=== PATIENT | female | born 2000 | race Caucasian/White ===

== ENCOUNTER → 2023-08-30 12:00 | Outpatient (CLI) | payer BC, SELFPAY ==
[2023-08-30 18:29] LABS: Basophils # 0.1 K/mm3 (0-0.2); Basophils % 0.6 % (0.1-2.0); Eosinophils # 0.1 K/mm3 (0.0-0.4); Eosinophils % 0.6 % (0.1-12.0); Hematocrit 40.7 % (37.0-47.0); Lymphocytes # 3.4 K/mm3 (0.7-4.5); Lymphocytes % 32.5 % (10-50); Mean Corpuscular HGB Conc 34.4 g/dL (31.8-35.4); Mean Corpuscular Hemoglobin 30.3 pg (27.0-31.2); Mean Corpuscular Volume 88.2 fl (81-99); Monocytes # 0.4 K/mm3 (0.1-1.0); Monocytes % 3.8 % (1.7-9.3); Neutrophils # 6.5 K/mm3 (1.8-7.8); Neutrophils % 62.6 % (37.0-80.0); Platelet Count 230 K/mm3 (142-424); Red Blood Count 4.61 M/mm3 (4.20-5.40); Red Cell Distribution Width 15.2 % (11.5-17.5); White Blood Count 10.4 K/mm3 (4.8-10.8)
[2023-08-30 18:59] LABS: Alanine Aminotransferase 20 U/L (12-78); Albumin Level 4.1 g/dl (3.5-5.0); Albumin/Globulin Ratio 1.3 (1.1-1.8); Alkaline Phosphatase 75 U/L (38-126); Anion Gap 13.9 mEq/L (5-15); Aspartate Amino Transferase 27 U/L (14-36); Bilirubin,Total 0.2 mg/dl (0.2-1.3); Blood Urea Nitrogen 8 mg/dl (7-17); Calcium 8.9 mg/dl (8.4-10.2); Carbon Dioxide 23 mmol/L (22.0-30.0); Chloride 103 mmol/L (98-107); Chol/HDL Ratio 3.1 (1-3.5); Cholesterol 214 mg/dl (140-200); Estimated Glomerular Filt Rate 103 ml/min (>60); GFR (African American) 124 ML/MIN (>60); Globulin 3.1 g/dL (1.3-3.2); Glucose 108 mg/dl (74-100); HDL Cholesterol 69 mg/dl (40-60); Potassium 3.9 mmoL/L (3.5-5.1); Sodium 136 mmol/L (136-145); Total Protein,Serum 7.2 g/dl (6.3-8.2); Triglycerides 158 mg/dl (30-150); VLDL Cholesterol 32 mg/dL (0-40)
[2023-08-30 19:29] LABS: Thyroid Stimulating Hormone 1.62 uIU/mL (0.465-4.68)
[2023-08-30 20:19] LABS: Hemoglobin A1C 5.2 % (4.0-6.0)
== END ==
PROVIDERS: PCP Family Medicine; Visit Provider Family Medicine
DX: Z00.00 Encounter for general adult medical examination without abnormal findings (principal)
CPT/HCPCS: 80053; 80061; 83036; 84443; 85025

== ENCOUNTER 2024-07-14 09:01 | Outpatient (CLI) | payer BC, SELFPAY ==
[2024-07-14 19:27] LABS: Basophils # 0.1 K/mm3 (0-0.2); Basophils % 0.8 % (0.1-2.0); Eosinophils # 0.1 K/mm3 (0.0-0.4); Eosinophils % 0.7 % (0.1-12.0); Hematocrit 46.7 % (37.0-47.0); Hemoglobin 15.3 g/dL (12.2-16.2); Lymphocytes # 2.2 K/mm3 (0.7-4.5); Lymphocytes % 27.1 % (10-50); Mean Corpuscular HGB Conc 32.7 g/dL (31.8-35.4); Mean Corpuscular Hemoglobin 32.1 pg (27.0-31.2); Mean Corpuscular Volume 98.4 fl (81-99); Mean Platelet Volume 10.2 fl (7.4-10.4); Monocytes # 0.4 K/mm3 (0.1-1.0); Monocytes % 4.3 % (1.7-9.3); Neutrophils # 5.5 K/mm3 (1.8-7.8); Neutrophils % 67.1 % (37.0-80.0); Platelet Count 260 K/mm3 (142-424); Red Blood Count 4.75 M/mm3 (4.20-5.40); Red Cell Distribution Width 14.1 % (11.5-17.5); White Blood Count 8.1 K/mm3 (4.8-10.8)
[2024-07-14 19:40] LABS: Alanine Aminotransferase 25 U/L (12-78); Albumin Level 4.1 g/dl (3.5-5.0); Albumin/Globulin Ratio 1.5 (1.1-1.8); Alkaline Phosphatase 71 U/L (38-126); Anion Gap 11.9 mEq/L (5-15); Aspartate Amino Transferase 31 U/L (14-36); Bilirubin,Total 0.7 mg/dl (0.2-1.3); Blood Urea Nitrogen 6 mg/dl (7-17); Calcium 9.2 mg/dl (8.4-10.2); Carbon Dioxide 21 mmol/L (22.0-30.0); Chloride 106 mmol/L (98-107); Estimated Glomerular Filt Rate 122 ml/min (>60); GFR (African American) 147 ML/MIN (>60); Globulin 2.8 g/dL (1.3-3.2); Glucose 92 mg/dl (74-100); Potassium 3.9 mmoL/L (3.5-5.1); Sodium 135 mmol/L (136-145); Total Protein,Serum 6.9 g/dl (6.3-8.2)
[2024-07-14 19:56] LABS: HCG,Quantitative 789 mIU/ml (0-5.42)
[2024-07-14 20:07] LABS: Hemoglobin A1C 5.3 % (4.0-6.0)
[2024-07-14 20:11] LABS: Thyroid Stimulating Hormone 1.98 uIU/mL (0.465-4.68)
[2024-07-14 20:46] LABS: Vitamin B12 247 pg/mL (239-931)
== END 2024-07-14 23:59 | disposition home or self-care (01) ==
LOC: LAB.DROPOF 07-15 09:01
PROVIDERS: PCP Nurse Practitioner; Visit Provider Nurse Practitioner
DX: Z34.90 Encounter for supervision of normal pregnancy, unspecified, unspecified trimester (principal)
CPT/HCPCS: 80050; 80053; 82607; 82746; 83036; 84443; 84702; 85025

== ENCOUNTER 2024-07-20 08:44 | Outpatient (CLI) | payer BC, SELFPAY ==
[2024-07-21 08:40] LABS: Progesterone 6.8 ng/mL (.)
== END 2024-07-20 23:59 | disposition home or self-care (01) ==
LOC: LAB 08:45
PROVIDERS: PCP Family Medicine; Visit Provider Obstetrics & Gynecology
DX: Z34.81 Encounter for supervision of other normal pregnancy, first trimester (principal)
CPT/HCPCS: 36415; 84144

== ENCOUNTER 2024-08-04 11:37 | Outpatient (CLI) | payer BC, SELFPAY ==
[2024-08-04 12:16] LABS: Basophils # 0.1 K/mm3 (0-0.2); Basophils % 0.5 % (0.1-2.0); Eosinophils % 0.4 % (0.1-12.0); Hematocrit 41.9 % (37.0-47.0); Hemoglobin 14.9 g/dL (12.2-16.2); Lymphocytes # 2.9 K/mm3 (0.7-4.5); Lymphocytes % 25.2 % (10-50); Mean Corpuscular HGB Conc 35.7 g/dL (31.8-35.4); Mean Corpuscular Hemoglobin 31.9 pg (27.0-31.2); Mean Corpuscular Volume 89.3 fl (81-99); Monocytes # 0.5 K/mm3 (0.1-1.0); Monocytes % 3.9 % (1.7-9.3); Neutrophils # 8.1 K/mm3 (1.8-7.8); Neutrophils % 69.9 % (37.0-80.0); Platelet Count 238 K/mm3 (142-424); Red Blood Count 4.69 M/mm3 (4.20-5.40); Red Cell Distribution Width 13.7 % (11.5-17.5); White Blood Count 11.6 K/mm3 (4.8-10.8)
[2024-08-04 13:19] LABS: HIV (1&2) Antibody Rapid NONREACTIVE (NONREACTIVE)
[2024-08-05 09:20] LABS: HCV Ab Non Reactive (Non Reactive); Hepatitis B Surface Antigen Negative (Negative)
[2024-08-05 13:41] LABS: Rapid Plasma Reagin Ab Titer Non Reactive titer (NonRea<1:1)
[2024-08-06 12:47] LABS: Rubella Antibodies, IgG <0.90 index (Immune >0.99)
== END 2024-08-04 23:59 | disposition home or self-care (01) ==
LOC: LAB 11:38
PROVIDERS: PCP Family Medicine; Visit Provider Obstetrics & Gynecology
DX: Z34.81 Encounter for supervision of other normal pregnancy, first trimester (principal)
CPT/HCPCS: 36415; 85025; 86593; 86762; 86803; 86850; 87086; 87340; 87389

== ENCOUNTER 2024-10-23 12:45 | Outpatient (CLI) | payer BC, SELFPAY ==
--- NOTE | 2024-10-23 12:46 | US_ITS ---
PROCEDURE: US OB /MATERNAL DETAIL CLINICAL INDICATION: 20 week anatomy scan COMPARISON: No exams were available for comparison FINDINGS: Transabdominal sonographic images of the pelvis were obtained. From her established due date she is 20 weeks 2 days. Single viable intrauterine gestation. Cephalic position. Placenta: Anteriorplacenta grade 1. There is an average amount of fluid. The cervix appears satisfactory. Closed and measuring 2.96 cm in length. Complete survey performed and was unremarkable on the submitted images as in PACS. No discrete anomalies identified on survey imaging by technologist. Active fetus. Three-vessel cord with satisfactory umbilical cord insertion. 4- chamber heart noted. Situs, aortic arch, LVOT, RVOT, three-vessel view appear normal. Survey of brain & ventricles Unremarkable. Cerebellum, thalamus, choroid plexus, cisterna magna appear normal. Face and neck survey unremarkable. Profile, nasion, lips and nose appeared normal. Diaphragm and chest views unremarkable. Abdomen: Both kidneys noted and unremarkable. Stomach and bladder noted and satisfactory. Spine: Survey of the spine satisfactory with no anomalies identified nor imaged. Cervical, thoracic, lower spine appear normal. Both arms and legs noted. Amniotic Fluid: Adequate. MVP 4.78 cm. Measurements: Average ultrasound age 19weeks 5days. Estimated due date by ultrasound age 0603/14/2025. Estimated weight 322g BPD = 19weeks 2days HC = 19weeks 1day AC = 20weeks 1day FL = 20weeks 1day Growth Percentile= 27 Heart Rate = 150bpm Cerebellum = 19weeks 3days Humerus = 19weeks 6days HC/AC is 1.1 FL/BPD is 0.73 FL/AC is 0.22 IMPRESSION: 1. Viable fetus in the cephalic presentation with an anterior placenta grade 1. 2. The fluid is within normal limits with an MVP 4.78 cm. 3. Anatomical scan appears normal. 4. biometry is consistent with the dates. Dictated by: Anthony Rodriguez MD 10/23/2024 18:58 Anthony Rodriguez MD in [facility] 10/23/2024 18:58
== END 2024-10-23 23:59 | disposition home or self-care (01) ==
LOC: RAD 12:46
PROVIDERS: PCP Family Medicine; Visit Provider Obstetrics & Gynecology
DX: Z36.89 Encounter for other specified antenatal screening (principal); Z3A.20 20 weeks gestation of pregnancy
CPT/HCPCS: 76811

== ENCOUNTER 2024-12-18 10:47 | Outpatient (CLI) | payer BC, SELFPAY ==
[2024-12-18 12:05] LABS: Basophils % 0.3 % (0.1-2.0); Eosinophils # 0.1 K/mm3 (0.0-0.4); Eosinophils % 0.5 % (0.1-12.0); Hematocrit 35.2 % (37.0-47.0); Hemoglobin 12.3 g/dL (12.2-16.2); Lymphocytes # 2.3 K/mm3 (0.7-4.5); Lymphocytes % 20.9 % (10-50); Mean Corpuscular HGB Conc 34.9 g/dL (31.8-35.4); Mean Corpuscular Hemoglobin 31.5 pg (27.0-31.2); Mean Corpuscular Volume 90.3 fl (81-99); Mean Platelet Volume 11.3 fl (7.4-10.4); Monocytes # 0.5 K/mm3 (0.1-1.0); Monocytes % 4.8 % (1.7-9.3); Neutrophils # 7.9 K/mm3 (1.8-7.8); Neutrophils % 72.7 % (37.0-80.0); Platelet Count 164 K/mm3 (142-424); Red Cell Distribution Width 12.9 % (11.5-17.5); White Blood Count 10.8 K/mm3 (4.8-10.8)
[2024-12-18 12:25] LABS: Glucose 1 Hour 150 mg/dL (74-100)
[2024-12-19 10:38] LABS: RPR W/RFX Titers Nonreactive (Nonreactive)
== END 2024-12-18 23:59 | disposition home or self-care (01) ==
LOC: LAB 10:48
PROVIDERS: PCP Family Medicine; Visit Provider Obstetrics & Gynecology
DX: Z34.83 Encounter for supervision of other normal pregnancy, third trimester (principal)
CPT/HCPCS: 36415; 82947; 85025; 86592

== ENCOUNTER 2024-12-25 08:30 | Outpatient (CLI) | payer BC, SELFPAY | END 2024-12-25 23:59 | disposition home or self-care (01) | LOC: LAB 08:31 | PROVIDERS: PCP Family Medicine; Visit Provider Obstetrics & Gynecology | DX: R69 Illness, unspecified (principal) ==

== ENCOUNTER 2025-01-14 16:18 | Outpatient (CLI) | payer BC, SELFPAY ==
[2025-01-14 17:41] LABS: Basophils % 0.3 % (0.1-2.0); Eosinophils # 0.1 K/mm3 (0.0-0.4); Eosinophils % 0.6 % (0.1-12.0); Lymphocytes # 2.5 K/mm3 (0.7-4.5); Lymphocytes % 22.2 % (10-50); Mean Corpuscular HGB Conc 34.3 g/dL (31.8-35.4); Mean Corpuscular Hemoglobin 31.7 pg (27.0-31.2); Mean Corpuscular Volume 92.3 fl (81-99); Monocytes # 0.7 K/mm3 (0.1-1.0); Monocytes % 5.9 % (1.7-9.3); Neutrophils # 7.9 K/mm3 (1.8-7.8); Neutrophils % 69.9 % (37.0-80.0); Platelet Count 181 K/mm3 (142-424); Red Blood Count 3.79 M/mm3 (4.20-5.40); White Blood Count 11.4 K/mm3 (4.8-10.8)
[2025-01-14 18:01] LABS: Creatinine,Urine Random 93 mg/dL (Not Estab.)
[2025-01-14 18:07] LABS: Alanine Aminotransferase 12 U/L (12-78); Albumin Level 3.5 g/dl (3.5-5.0); Albumin/Globulin Ratio 1.3 (1.1-1.8); Alkaline Phosphatase 103 U/L (38-126); Anion Gap 13.5 mEq/L (5-15); Aspartate Amino Transferase 18 U/L (14-36); Bilirubin,Total 0.4 mg/dl (0.2-1.3); Blood Urea Nitrogen 6 mg/dl (7-17); Calcium 8.9 mg/dl (8.4-10.2); Carbon Dioxide 24 mmol/L (22.0-30.0); Chloride 102 mmol/L (98-107); Estimated Glomerular Filt Rate 121 ml/min (>60); GFR (African American) 146 ML/MIN (>60); Globulin 2.7 g/dL (1.3-3.2); Glucose 76 mg/dl (74-100); Potassium 3.5 mmoL/L (3.5-5.1); Sodium 136 mmol/L (136-145); Total Protein,Serum 6.2 g/dl (6.3-8.2); Uric Acid 4.4 mg/dl (2.5-6.2)
== END 2025-01-14 23:59 | disposition home or self-care (01) ==
LOC: LAB 16:19
PROVIDERS: PCP Family Medicine; Visit Provider Obstetrics & Gynecology
DX: O13.9 Gestational [pregnancy-induced] hypertension without significant proteinuria, unspecified trimester (principal)
CPT/HCPCS: 36415; 80053; 82570; 84156; 84550; 85025

== ENCOUNTER 2025-01-18 10:34 | Outpatient (CLI) | payer BC, SELFPAY ==
[2025-01-18 11:33] VITALS: BMI 42.5
[2025-01-18] MEDS: LACTATED RINGERS 1000ML 1,000 ML 999 ML IV (12:08)
[2025-01-18 12:13] LABS: Microscopic, Urine URINE MICROSCOPIC (MICROSCOPIC)
[2025-01-18 12:16] LABS: Basophils % 0.2 % (0.1-2.0); Eosinophils # 0.1 K/mm3 (0.0-0.4); Eosinophils % 0.5 % (0.1-12.0); Hematocrit 34.8 % (37.0-47.0); Hemoglobin 12.2 g/dL (12.2-16.2); Lymphocytes # 2.2 K/mm3 (0.7-4.5); Lymphocytes % 20.4 % (10-50); Mean Corpuscular HGB Conc 35.1 g/dL (31.8-35.4); Mean Corpuscular Hemoglobin 31.7 pg (27.0-31.2); Mean Corpuscular Volume 90.4 fl (81-99); Mean Platelet Volume 11.3 fl (7.4-10.4); Monocytes # 0.6 K/mm3 (0.1-1.0); Monocytes % 5.5 % (1.7-9.3); Neutrophils # 7.7 K/mm3 (1.8-7.8); Neutrophils % 72.5 % (37.0-80.0); Platelet Count 168 K/mm3 (142-424); Red Blood Count 3.85 M/mm3 (4.20-5.40); Red Cell Distribution Width 13.1 % (11.5-17.5); White Blood Count 10.6 K/mm3 (4.8-10.8)
[2025-01-18 12:19] LABS: Appearance,Urine CLEAR (Clear); Bilirubin,Urine Negative (Negative); Blood, Urine Negative (Negative); Color,Urine YELLOW (Yellow); Glucose,Urine (UA) Negative (Negative); Ketones,Urine Negative (Negative); Leukocyte Esterase,Urine TRACE (Negative); Nitrate,Urine Negative (Negative); Protein,Urine Negative (Negative); Urobilinogen,Urine 0.2 EU/dl (0.2)
[2025-01-18 12:27] VITALS: BP 149/93; PULSE 96; RESP 17; TEMP 37.3; O2SAT 98; BMI 42.5
[2025-01-18 12:27] LABS: Alanine Aminotransferase 14 U/L (12-78); Albumin Level 3.6 g/dl (3.5-5.0); Albumin/Globulin Ratio 1.1 (1.1-1.8); Alkaline Phosphatase 108 U/L (38-126); Anion Gap 11.5 mEq/L (5-15); Aspartate Amino Transferase 20 U/L (14-36); Bilirubin,Total 0.5 mg/dl (0.2-1.3); Blood Urea Nitrogen 6 mg/dl (7-17); Calcium 9.3 mg/dl (8.4-10.2); Carbon Dioxide 23 mmol/L (22.0-30.0); Chloride 106 mmol/L (98-107); Creatinine Clearance Estimated 128 mL/min (50-200); Estimated Glomerular Filt Rate 121 ml/min (>60); GFR (African American) 146 ML/MIN (>60); Globulin 3.4 g/dL (1.3-3.2); Glucose 76 mg/dl (74-100); Potassium 3.5 mmoL/L (3.5-5.1); Sodium 137 mmol/L (136-145); Uric Acid 5.1 mg/dl (2.5-6.2)
[2025-01-18 12:34] LABS: Bacteria,Urine 2+ /lpf; RBC,Urine Occasional #/hpf (0-3); WBC,Urine Occasional #/hpf (0-3)
[2025-01-18 12:50] LABS: Activated Partial Thrombo Time 25.7 seconds (22.8-30.6); Fibrinogen 458 mg/dL (229.9-363.5); Prothrombin Time 10.2 seconds (10.1-12.5)
[2025-01-18 13:03] LABS: Creatinine,Urine Random 155 mg/dL (Not Estab.)
[2025-01-18 14:29] LABS: Total Volume,Urine 2300 mL (600-1600)
[2025-01-18 16:09] LABS: Total Protein 24 Hour,Urine 345 mg/24 hr (40-90)
== END 2025-01-18 14:04 | disposition home or self-care (01) ==
LOC: LAB 10:35 → OBOUT 11:30 → OB 11:31
PROVIDERS: Nurse Practitioner Obstetrics & Gynecology; Obstetrics & Gynecology; PCP Family Medicine; Visit Provider Obstetrics & Gynecology
DX: O13.3 Gestational [pregnancy-induced] hypertension without significant proteinuria, third trimester (principal); Z3A.32 32 weeks gestation of pregnancy
CPT/HCPCS: 80053; 81001; 82570; 84155; 84156; 84550; 85025; 85384; 85610; 85730; 87086; G0463; J7120

== ENCOUNTER 2025-01-21 10:12 | Outpatient (CLI) | payer BC, SELFPAY ==
--- NOTE | 2025-01-21 10:45 | US_ITS ---
PROCEDURE: US OB BIOPHYSICAL PROFILE CLINICAL INDICATION: Needs 01/21/25 for Gestational hypertension COMPARISON: US US OB /MATERNAL DETAIL from 10/23/2024 FINDINGS: Transabdominal sonographic images of the uterus were obtained. From her established due date she is 33weeks 1day. The following parameters are obtained: Viable Fetus in the cephalic presentation with an anterior placenta grade 2. Average ultrasound age is 33weeks 6days Estimated weight 2,383g, 5 lb 4 oz The cervix measures 3.76 cm. Measurements: heart Rate = 147bpm BPD = 33weeks 1day, 44 percentile HC = 33weeks 0 days, 11 percentile AC = 35weeks 1day, 94 percentile FL = 33weeks 5days, 52 percentile HC/AC is 0.95 FL/BPD is 0.79 FL/AC is 0.21 75 percentile Amniotic fluid index: 12.1cm, MVP 4.63 cm Qualitative AFV:2 Breathing movements: 2 Gross Body Movements: 2 Tone: 2 Biophysical profile score: 8 No obvious anomalies evident.Kidneys, stomach, bladder, four-chamber heart, three-vessel cord appear normal. IMPRESSION: 1. Viable fetus in the cephalic presentation with an anterior placenta grade 2. 2. The fluid is within normal limits with an amniotic fluid index 12.1 cm, MVP 4.63 cm. 3. Biophysical profile is 8/8 with good breathing movement and movement seen. 4. There has been good interval growth with the fetus currently 75th percentile. The abdominal circumference is approximately 2 weeks ahead. 5. Limited anatomical scan appears normal. Dictated by: Anthony Rodriguez MD 01/21/2025 10:59 Antohny Rodriguez MD in [facility] 01/21/2025 10:59
== END 2025-01-21 23:59 | disposition home or self-care (01) ==
LOC: RAD 10:13
PROVIDERS: PCP Family Medicine; Visit Provider Obstetrics & Gynecology
DX: O13.3 Gestational [pregnancy-induced] hypertension without significant proteinuria, third trimester (principal); Z3A.33 33 weeks gestation of pregnancy
CPT/HCPCS: 76816; 76819

== ENCOUNTER 2025-01-21 14:33 | Outpatient (CLI) | payer BC, SELFPAY ==
[2025-01-21] VITALS (9 sets, daily range): BP systolic 122–145; BP diastolic 70–89; PULSE 103; RESP 18; TEMP 36.9; O2SAT 98; BMI 42.5
[2025-01-21 15:43] LABS: Microscopic, Urine URINE MICROSCOPIC (MICROSCOPIC)
[2025-01-21 15:46] LABS: Bilirubin,Urine Negative (Negative); Blood, Urine Negative (Negative); Glucose,Urine (UA) Negative (Negative); Ketones,Urine Negative (Negative); Leukocyte Esterase,Urine 1+ (Negative); Nitrate,Urine Negative (Negative); Protein,Urine Negative (Negative); Specific Gravity, Urine <= 1.005 (1.005-1.030); Urobilinogen,Urine 0.2 EU/dl (0.2)
[2025-01-21 15:47] LABS: Basophils % 0.4 % (0.1-2.0); Eosinophils # 0.1 K/mm3 (0.0-0.4); Eosinophils % 0.7 % (0.1-12.0); Hematocrit 33.2 % (37.0-47.0); Hemoglobin 11.9 g/dL (12.2-16.2); Lymphocytes # 2.4 K/mm3 (0.7-4.5); Lymphocytes % 23.5 % (10-50); Mean Corpuscular HGB Conc 35.8 g/dL (31.8-35.4); Mean Corpuscular Hemoglobin 32.4 pg (27.0-31.2); Mean Corpuscular Volume 90.5 fl (81-99); Mean Platelet Volume 11.8 fl (7.4-10.4); Monocytes # 0.6 K/mm3 (0.1-1.0); Monocytes % 5.6 % (1.7-9.3); Neutrophils # 7.1 K/mm3 (1.8-7.8); Neutrophils % 68.8 % (37.0-80.0); Nucleated Red Blood Cells # 0 10^3/uL; Nucleated Red Blood Cells % 0 %; Platelet Count 174 K/mm3 (142-424); Red Blood Count 3.67 M/mm3 (4.20-5.40); Red Cell Distribution Width 13.1 % (11.5-17.5); Red Cell Distribution Width-SD 42.6 fL; White Blood Count 10.3 K/mm3 (4.8-10.8)
[2025-01-21 15:50] LABS: Appearance,Urine Slightly Cloudy (Clear); Color,Urine Straw (Yellow)
[2025-01-21 16:02] LABS: Fibrinogen 458 mg/dL (229.9-363.5); INR 0.87 (0.9-1.1); Prothrombin Time 9.9 seconds (10.1-12.5)
[2025-01-21 16:03] LABS: Alanine Aminotransferase 15 U/L (12-78); Anion Gap 12.6 mEq/L (5-15); Aspartate Amino Transferase 23 U/L (14-36); Blood Urea Nitrogen 6 mg/dl (7-17); Calcium 8.6 mg/dl (8.4-10.2); Carbon Dioxide 21 mmol/L (22.0-30.0); Chloride 107 mmol/L (98-107); Creatinine Clearance Estimated 153 mL/min (50-200); Estimated Glomerular Filt Rate 149 ml/min (>60); GFR (African American) 180 ML/MIN (>60); Glucose 66 mg/dl (74-100); Potassium 3.6 mmoL/L (3.5-5.1); Sodium 137 mmol/L (136-145); Uric Acid 4.7 mg/dl (2.5-6.2)
[2025-01-21 16:08] LABS: Bacteria,Urine 4+ /lpf; Renal Epithelial Cells,Urine Occasional #/lpf (0)
[2025-01-21] MEDS: LABETALOL 100MG TABLET 200 MG PO (16:36)
[2025-01-21 16:37] LABS: Activated Partial Thrombo Time 26.1 seconds (22.8-30.6)
== END 2025-01-21 17:25 | disposition home or self-care (01) ==
LOC: OBOUT 14:34 → OB 14:35
PROVIDERS: PCP Family Medicine; Visit Provider Nurse Practitioner Obstetrics & Gynecology
DX: O13.3 Gestational [pregnancy-induced] hypertension without significant proteinuria, third trimester (principal); Z3A.33 33 weeks gestation of pregnancy
CPT/HCPCS: 80048; 81001; 84450; 84460; 84550; 85025; 85384; 85610; 85730; 87086; G0463

== ENCOUNTER 2025-01-25 15:41 | Outpatient (CLI) | payer BC, SELFPAY ==
[2025-01-25 15:52] VITALS: BMI 43.1
[2025-01-25 15:59] LABS: Microscopic, Urine URINE MICROSCOPIC (MICROSCOPIC)
[2025-01-25 16:09] LABS: Bilirubin,Urine Negative (Negative); Blood, Urine Negative (Negative); Color,Urine YELLOW (Yellow); Glucose,Urine (UA) Negative (Negative); Ketones,Urine Negative (Negative); Leukocyte Esterase,Urine 1+ (Negative); Nitrate,Urine Negative (Negative); Protein,Urine Negative (Negative); Specific Gravity, Urine <= 1.005 (1.005-1.030); Urobilinogen,Urine 0.2 EU/dl (0.2)
[2025-01-25 16:12] VITALS: BP 133/83; PULSE 97; RESP 18; TEMP 36.9; O2SAT 98; BMI 43.1
[2025-01-25 16:12] LABS: Appearance,Urine Cloudy (Clear)
[2025-01-25 16:36] LABS: Bacteria,Urine Trace /lpf; RBC,Urine Occasional #/hpf (0-3)
== END 2025-01-25 16:53 | disposition home or self-care (01) ==
LOC: OBOUT 15:44 → OB 15:51
PROVIDERS: PCP Family Medicine; Visit Provider Nurse Practitioner Obstetrics & Gynecology
DX: O13.3 Gestational [pregnancy-induced] hypertension without significant proteinuria, third trimester (principal); Z3A.33 33 weeks gestation of pregnancy
CPT/HCPCS: 59025; 81001; 87086

== ENCOUNTER 2025-01-26 12:33 | Outpatient (CLI) | payer BC, SELFPAY ==
--- NOTE | 2025-01-26 13:00 | US_ITS ---
PROCEDURE: US OB BIOPHYSICAL PROFILE CLINICAL INDICATION: Needs 01/26/25 for gestational hypertension COMPARISON: US US OB /MATERNAL DETAIL from 10/23/2024 US US OB BIOPHYSICAL PROFILE from 01/21/2025 FINDINGS: Transabdominal sonographic images of the uterus were obtained. From her established due date she is 33weeks 6days. The following parameters are obtained: Viable Fetus in the cephalic presentation with an anterior placenta grade 2. The cervix measures 3.38 cm. Measurements: heart Rate = 133bpm Amniotic fluid index: 8.2cm, MVP 3.10 cm. Qualitative AFV:2 Breathing movements: 2 Gross Body Movements: 2 Tone: 2 Biophysical profile score: 8 No obvious anomalies evident.Kidneys, bladder, stomach, four-chamber heart, three-vessel cord appear normal. IMPRESSION: 1. Viable fetus in the cephalic presentation with an anterior placenta grade 2. 2. The fluid is within normal limits with an amniotic fluid index 8.20 cm, MVP 3.10 cm. 3. Biophysical profile is 8/8 with good breathing movement and movement seen. 4. Limited anatomical scan appears normal. Dictated by: Anthony Rodriguez MD 01/26/2025 14:36 Anthony Rodriguez MD in [facility] 01/26/2025 14:36
== END 2025-01-26 23:59 | disposition home or self-care (01) ==
LOC: RAD 12:34
PROVIDERS: PCP Family Medicine; Visit Provider Obstetrics & Gynecology
DX: O13.3 Gestational [pregnancy-induced] hypertension without significant proteinuria, third trimester (principal)
CPT/HCPCS: 76819

== ENCOUNTER 2025-01-28 12:19 | Inpatient (IN) | payer BC, SELFPAY ==
[2025-01-28] VITALS (9 sets, daily range): BP systolic 121–149; BP diastolic 67–77; PULSE 88–104; RESP 16–18; TEMP 36.4–36.8; O2SAT 98–99; BMI 42.7
[2025-01-28] MEDS: CALCIUM CARBONATE 500MG CHEWTAB 500 MG PO (13:00)
--- NOTE | 2025-01-28 13:54 | P.CONPHA_ITS ---
Pharmacy Intervention Comments: MEDICATION RECONCILIATION COMPLETED ON PATIENT USING EXTERNAL FILL HISTORY FROM PHARMACY AND LIST FROM SCREENER OPERATOR OFFICE. -AMAN MARTÍNEZD
--- NOTE | 2025-01-28 13:54 | HMH.PHAINT1 ---
Pharmacy Intervention Comments: MEDICATION RECONCILIATION COMPLETED ON PATIENT USING EXTERNAL FILL HISTORY FROM PHARMACY AND LIST FROM SENIOR GAME DEVELOPER OFFICE. -AMAN MARTÍNEZD
[2025-01-28 14:18] LABS: Microscopic, Urine URINE MICROSCOPIC (MICROSCOPIC)
[2025-01-28 14:20] LABS: Basophils % 0.2 % (0.1-2.0); Eosinophils # 0.1 K/mm3 (0.0-0.4); Eosinophils % 1.1 % (0.1-12.0); Hemoglobin 11.7 g/dL (12.2-16.2); Lymphocytes # 2.4 K/mm3 (0.7-4.5); Lymphocytes % 22.4 % (10-50); Mean Corpuscular HGB Conc 34.4 g/dL (31.8-35.4); Mean Corpuscular Hemoglobin 31.5 pg (27.0-31.2); Mean Corpuscular Volume 91.4 fl (81-99); Mean Platelet Volume 11.3 fl (7.4-10.4); Monocytes # 0.6 K/mm3 (0.1-1.0); Monocytes % 5.2 % (1.7-9.3); Neutrophils # 7.4 K/mm3 (1.8-7.8); Neutrophils % 70.4 % (37.0-80.0); Nucleated Red Blood Cells # 0 10^3/uL; Nucleated Red Blood Cells % 0 %; Platelet Count 174 K/mm3 (142-424); Red Blood Count 3.72 M/mm3 (4.20-5.40); Red Cell Distribution Width 13.1 % (11.5-17.5); Red Cell Distribution Width-SD 43.6 fL; White Blood Count 10.5 K/mm3 (4.8-10.8)
[2025-01-28 14:22] LABS: Appearance,Urine CLEAR (Clear); Bilirubin,Urine Negative (Negative); Blood, Urine Negative (Negative); Color,Urine YELLOW (Yellow); Glucose,Urine (UA) Negative (Negative); Ketones,Urine Negative (Negative); Leukocyte Esterase,Urine Negative (Negative); Nitrate,Urine Negative (Negative); PH,Urine 6.5 (5.0-8.5); Protein,Urine Negative (Negative); Specific Gravity, Urine <= 1.005 (1.005-1.030); Urobilinogen,Urine 0.2 EU/dl (0.2)
[2025-01-28 14:26] LABS: Chloride 106 mmol/L (98-107)
[2025-01-28 14:27] LABS: Albumin Level 3.7 g/dl (3.5-5.0); Potassium 3.3 mmoL/L (3.5-5.1); Sodium 139 mmol/L (136-145)
[2025-01-28 14:29] LABS: Blood Urea Nitrogen 5 mg/dl (7-17); Creatinine Clearance Estimated 110 mL/min (50-200); Estimated Glomerular Filt Rate 101 ml/min (>60); GFR (African American) 122 ML/MIN (>60)
[2025-01-28 14:30] LABS: Alanine Aminotransferase 19 U/L (12-78); Albumin/Globulin Ratio 1.1 (1.1-1.8); Alkaline Phosphatase 113 U/L (38-126); Anion Gap 14.3 mEq/L (5-15); Aspartate Amino Transferase 25 U/L (14-36); Bilirubin,Total 0.4 mg/dl (0.2-1.3); Calcium 9.4 mg/dl (8.4-10.2); Carbon Dioxide 22 mmol/L (22.0-30.0); Globulin 3.4 g/dL (1.3-3.2); Glucose 103 mg/dl (74-100); Total Protein,Serum 7.1 g/dl (6.3-8.2)
[2025-01-28 14:40] LABS: Bacteria,Urine Trace /lpf; WBC,Urine Occasional #/hpf (0-3)
[2025-01-28 14:57] LABS: Creatinine,Urine Random 27 mg/dL (Not Estab.)
[2025-01-28 15:59] LABS: RPR W/RFX Titers Nonreactive (Nonreactive)
--- NOTE | 2025-01-28 16:47 | EXP.HP ---
History of Present Illness *Admission Date: 01/28/25 *Reason for visit:: Preeclampsia *History of present illness: Dahlia Salinas is a 24-year-old G1, P0 who presented to the office today with elevated blood pressures. At home her blood pressures have been within normal limits. She does have a diagnosis of preeclampsia. There is a complicated picture on if this is chronic hypertension with superimposed preeclampsia versus gestational hypertension which is turned into preeclampsia. She was sent over to labor and delivery for prolonged monitoring and possibly delivery if indicated. She was previously sent to labor and delivery on 01/18/2025 and received 2 doses of steroids during this time. She was started on labetalol 200 mg twice daily at this time as well. She denies any headaches, vision changes, or right upper quadrant pain today. Her 1 hour GTT was 150. She refused to do the 3-hour GTT and has been monitoring her blood glucose. They have been within normal limits. OB ultrasound reviewed - Most recent ultrasound on 01/26/2025: BPP 8/8. RADHA: 8.2. MVP: 3.1 cm. Anterior grade 2 placenta. Fetus was cephalic. - Ultrasound on 01/21/2025 at 33 weeks and 1 day gestation. EFW: 2383 g, 5 pounds 4 ounces. BPD: 44%, HC: 11%, AC: 94%, FL: 52%. 75th percentile overall. BPP: 8/8. MVP: 4.6 cm. Cervix was long thick and closed at 3.76 cm. [facility] Disclaimer: The information contained in this section may have been updated after the patient was seen, as this information can be updated by other users. 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 Anxiety Depression Surgical History Hx of anterior cruciate ligament surgery Social History Smoking Status: Never smoker alcohol intake: never current occupational status: employed Travel in the last 8 weeks: None Have you lived/traveled outside [place] in past 30 days?: No Contact w/someone who lives/traveled outside US past 30 days?: No Exposure to someone with infectious disease in past 14 days?: No Do you have a fever (greater than 100.4 F or 38 C)?: No Have you tested positive for COVID-19: No Exposed to someone with COVID-19 in past 14 days?: No Do you have a sore throat?: No Do you have a cough?: No Do you have any weakness?: No Do you have any diarrhea?: No Are you experiencing any unusual bleeding?: No Do you have any muscle aches/pain?: No Do you have any abdominal pain?: No Are you experiencing loss of taste or smell?: No Other Medical History Have you received the Flu Vaccine for this season: No Have you received the Pneumonia Vaccine: No Review of Systems Review of Systems Review of systems (narrative): Review of Systems Constitutional: Denies fever, chills, and sweats Eyes: Denies vision change/ pain Respiratory: Denies cough and shortness of breath Cardiovascular: Denies chest pain and lightheadedness Gastrointestinal: Denies abdominal pain. Denies nausea, vomiting. Genitourinary: Denies dysuria and incontinence Musculoskeletal: Denies shoulder pain and back pain Neurological: Denies change in speech or headaches Meds Home Medications and Allergies Home Medications ?Medication ?Instructions ?Recorded ?Confirmed ?Type vits no.130-ferrous fum 1 tab PO DAILY 08/04/24 01/28/25 History 27 mg iron-folic acid 800 mcg tablet ( Vitamin) hydroxyzine HCl 50 mg tablet 50 mg PO HS #30 tabs 11/18/24 01/28/25 Rx blood-glucose meter #1 ea 12/25/24 01/28/25 Rx labetalol 200 mg tablet 200 mg PO BID #60 tabs 01/21/25 01/28/25 Rx ondansetron HCl 4 mg tablet 4 mg PO Q8HP PRN nausea and 01/28/25 01/28/25 History vomiting New Prescriptions to Start Prescriptions: Allergies Allergy/AdvReac Type Severity Reaction Status Date / Time No Known Allergies Allergy Verified 01/28/25 10:59 Exam Data for Last 24 hours Vital signs and Labs for Last 24 Hours: Temp Pulse Resp BP Pulse Ox O2 Del Method 98.1 F 97 H 16 134/74 98 Room Air 01/28/25 16:03 01/28/25 16:03 01/28/25 16:03 01/28/25 16:03 01/28/25 16:03 01/28/25 16:03 Laboratory Results - last 24 hr 01/28/25 13:04: Urine Creatinine 27, Urine Total Protein 14.0 H 01/28/25 13:56: WBC 10.5, RBC 3.72 L, Hgb 11.7 L, Hct 34.0 L, MCV 91.4, MCH 31.5 H, MCHC 34.4, RDW 13.1, Plt Count 174, MPV 11.3 H, Neut % (Auto) 70.4, Lymph % (Auto) 22.4, [facility] % (Auto) 5.2, Eos % (Auto) 1.1, Baso % (Auto) 0.2, Neut # (Auto) 7.4, Lymph # (Auto) 2.4, [facility] # (Auto) 0.6, Eos # (Auto) 0.1, Baso # (Auto) 0.0, Sodium 139, Potassium 3.3 L, Chloride 106, Carbon Dioxide 22, Anion Gap 14.3, BUN 5 L, Creatinine 0.70, Estimated Creat Clear 110, Estimated GFR 101, Est GFR ( Amer) 122, Glucose 103 H, Uric Acid 6.0, Calcium 9.4, Total Bilirubin 0.4, AST 25, ALT 19, Alkaline Phosphatase 113, Total Protein 7.1, Albumin 3.7, Globulin 3.4 H, Albumin/Globulin Ratio 1.1, Urine Color Yellow, Urine Appearance Clear, Urine pH 6.5, Ur Specific [place] <= 1.005, Urine Protein Negative, Urine Glucose (UA) Negative, Urine Ketones Negative, Urine Blood Negative, Urine Nitrate Negative, Urine Bilirubin Negative, Urine Urobilinogen 0.2, Ur Leukocyte Esterase Negative, Urine RBC None, Urine WBC Occasional, Ur Squamous Epith Cells 5-10, Urine Bacteria Trace, RPR w/Rflx to Titer Nonreactive I & O for Last 24 hours: Intake & Output 01/25/25 01/26/25 01/27/25 01/28/25 23:59 23:59 23:59 23:59 Weight 257 lb Constitutional Constitutional: no acute distress *Routine HEENT Exam Head: Present normocephalic Eye: Present EOMI and PERRL ENT: Present mucous membranes moist *Routine Neck Exam Neck: Present supple; Absent lymphadenopathy *Routine Respiratory Exam Respiratory: Present CTA bilaterally *Routine Cardiovascular Exam Cardiovascular: Present RRR *Routine Abdominal Exam Abdominal: Present soft and normoactive bowel sounds; Absent tenderness *Routine Rectal Exam Rectal:: deferred *Routine Genitalia Exam Genitalia:: deferred *Routine Extremities Exam Extremities: Present edema; Absent cyanosis or clubbing *Routine Skin Exam Skin: Present warm; Absent rash *Routine Neurological Exam Neurological: Present alert and oriented X3 Assessment and Plan *Assessment and plan (1) Preeclampsia: Status: Acute Category: Medical Code(s): O14.90 - Unspecified pre-eclampsia, unspecified trimester (2) Depression: Status: Acute Category: Medical Code(s): F32.A - Depression, unspecified (3) Anxiety: Status: Acute Category: Medical Code(s): F41.9 - Anxiety disorder, unspecified (4) Obesity: Status: Acute Qualifiers: Obesity type: due to excess calories Obesity classification: adult class 3 (BMI >= 40) Serious obesity comorbidity presence: without serious comorbidity Body mass index: BMI 40.0-44.9 Qualified Code(s): E66.813 - Obesity, class 3; E66.01 - Morbid (severe) obesity due to excess calories; Z68.41 - Body mass index [BMI] 40.0-44.9, adult Category: Medical Code(s): E66.9 - Obesity, unspecified (5) Rubella non-immune status, antepartum: Status: Acute Category: Medical Code(s): O09.899 - Supervision of other high risk pregnancies, unspecified trimester; Z28.39 - Other underimmunization status Plan Admit to labor and delivery for prolonged monitoring and possible delivery secondary to a diagnosis of preeclampsia. This admission will be to rule out preeclampsia with severe features. Discussed the risk that if preeclampsia with severe features is diagnosed she will need to have magnesium and possibly be transferred to a higher level of care with an appropriate NICU secondary to delivery. We will complete PIH labs daily. Will continue to monitor her glucose. NSTs every 6 hours Frequent vital signs and assessment Repeat BPP on Saturday
[2025-01-28] MEDS: hydrOXYzine pamoate 25MG CAPSULE 50 MG PO (20:49)
[2025-01-28] MEDS: LABETALOL 100MG TABLET 200 MG PO (20:49)
[2025-01-29 04:00] VITALS: BP 126/72; PULSE 85; RESP 18; TEMP 36.8; O2SAT 98
[2025-01-29 06:24] LABS: Albumin Level 3.3 g/dl (3.5-5.0); Chloride 108 mmol/L (98-107); Potassium 3.5 mmoL/L (3.5-5.1); Sodium 138 mmol/L (136-145)
[2025-01-29 06:27] LABS: Alanine Aminotransferase 20 U/L (12-78); Albumin/Globulin Ratio 1.1 (1.1-1.8); Alkaline Phosphatase 135 U/L (38-126); Anion Gap 11.5 mEq/L (5-15); Aspartate Amino Transferase 30 U/L (14-36); Bilirubin,Total 0.4 mg/dl (0.2-1.3); Blood Urea Nitrogen 5 mg/dl (7-17); Calcium 8.6 mg/dl (8.4-10.2); Carbon Dioxide 22 mmol/L (22.0-30.0); Creatinine Clearance Estimated 192 mL/min (50-200); Estimated Glomerular Filt Rate 193 ml/min (>60); GFR (African American) 233 ML/MIN (>60); Globulin 3.1 g/dL (1.3-3.2); Glucose 78 mg/dl (74-100); Total Protein,Serum 6.4 g/dl (6.3-8.2)
[2025-01-29 06:31] LABS: Basophils # 0.1 K/mm3 (0-0.2); Basophils % 0.4 % (0.1-2.0); Eosinophils # 0.2 K/mm3 (0.0-0.4); Eosinophils % 1.4 % (0.1-12.0); Hematocrit 27.7 % (37.0-47.0); Lymphocytes # 2.4 K/mm3 (0.7-4.5); Lymphocytes % 16.9 % (10-50); Mean Corpuscular HGB Conc 30.3 g/dL (31.8-35.4); Mean Corpuscular Hemoglobin 24.6 pg (27.0-31.2); Mean Platelet Volume 9.7 fl (7.4-10.4); Monocytes # 1.2 K/mm3 (0.1-1.0); Monocytes % 8.4 % (1.7-9.3); Neutrophils # 9.5 K/mm3 (1.8-7.8); Neutrophils % 68.5 % (37.0-80.0); Nucleated Red Blood Cells # 0 10^3/uL; Nucleated Red Blood Cells % 0 %; Platelet Count 290 K/mm3 (142-424); Red Blood Count 3.42 M/mm3 (4.20-5.40); Red Cell Distribution Width 15.1 % (11.5-17.5); Red Cell Distribution Width-SD 44.7 fL; White Blood Count 13.9 K/mm3 (4.8-10.8)
[2025-01-29 07:08] LABS: Hemoglobin 8.5 g/dL (12.2-16.2)
[2025-01-29 07:25] LABS: Uric Acid 2.4 mg/dl (2.5-6.2)
[2025-01-29 08:00] VITALS: BP 127/66; PULSE 97; RESP 18; TEMP 36.7; O2SAT 97
[2025-01-29] MEDS: PRENATAL MULTIVITAMIN W/IRON 1 EACH PO (08:17)
[2025-01-29] MEDS: LABETALOL 100MG TABLET 200 MG PO ×2 (08:17→20:38)
[2025-01-29 12:00] VITALS: BP 131/62; PULSE 96; RESP 18; TEMP 36.8; O2SAT 99
--- NOTE | 2025-01-29 15:19 | EXP.PN ---
Subjective *Date: 01/29/25 *Time: 15:19 Interval history: Patient is doing well this morning. Denies any headaches, vision changes, right upper quadrant pain. Endorses very good movement. Her blood pressures have been well-controlled overnight. She states that she is occasionally able to tell when her blood pressure is elevated and she has not had any feelings of blood pressure elevations. Exam Data for Last 24 hours Vital signs and Labs for Last 24 Hours: Temp Pulse Resp BP Pulse Ox O2 Del Method 98.2 F 96 H 18 131/62 99 Room Air 01/29/25 12:00 01/29/25 12:00 01/29/25 12:00 01/29/25 12:00 01/29/25 12:00 01/29/25 12:00 Laboratory Results - last 24 hr 01/28/25 13:56: Uric Acid 6.0, RPR w/Rflx to Titer Nonreactive 01/29/25 05:09: WBC 13.9 H D, RBC 3.42 L, Hgb 8.5 L D, Hct 27.7 L, MCV 81.0, MCH 24.6 L, MCHC 30.3 L, RDW 15.1, Plt Count 290 D, MPV 9.7, Neut % (Auto) 68.5, Lymph % (Auto) 16.9, [place] % (Auto) 8.4, Eos % (Auto) 1.4, Baso % (Auto) 0.4, Neut # (Auto) 9.5 H, Lymph # (Auto) 2.4, [place] # (Auto) 1.2 H, Eos # (Auto) 0.2, Baso # (Auto) 0.1, Sodium 138, Potassium 3.5, Chloride 108 H, Carbon Dioxide 22, Anion Gap 11.5, BUN 5 L, Creatinine 0.40 L D, Estimated Creat Clear 192, Estimated GFR 193, Est GFR ( Amer) 233 D, Glucose 78 D, Uric Acid 2.4 L, Calcium 8.6, Total Bilirubin 0.4, AST 30, ALT 20, Alkaline Phosphatase 135 H, Total Protein 6.4, Albumin 3.3 L D, Globulin 3.1, Albumin/Globulin Ratio 1.1 I & O for Last 24 hours: Intake & Output 01/26/25 01/27/25 01/28/25 01/29/25 23:59 23:59 23:59 23:59 Output Total 1400 / 1400 700 / 700 Balance -1400 / -1400 -700 / -700 Weight 257 lb Constitutional Constitutional: no acute distress *Routine HEENT Exam Head: Present normocephalic Eye: Present EOMI and PERRL ENT: Present mucous membranes moist *Routine Neck Exam Neck: Present supple; Absent lymphadenopathy *Routine Respiratory Exam Respiratory: Present CTA bilaterally *Routine Cardiovascular Exam Cardiovascular: Present RRR *Routine Abdominal Exam Abdominal: Present soft and normoactive bowel sounds; Absent tenderness *Routine Extremities Exam Extremities: Absent cyanosis, clubbing or edema Comments: Plus 2 out of 4 bilateral lower extremity reflexes *Routine Skin Exam Skin: Present warm; Absent rash *Routine Neurological Exam Neurological: Present alert and oriented X3 Assessment and Plan *Assessment and plan (1) Preeclampsia: Status: Acute Category: Medical Code(s): O14.90 - Unspecified pre-eclampsia, unspecified trimester (2) Depression: Status: Acute Category: Medical Code(s): F32.A - Depression, unspecified (3) Anxiety: Status: Acute Category: Medical Code(s): F41.9 - Anxiety disorder, unspecified (4) Obesity: Status: Acute Qualifiers: Obesity type: due to excess calories Obesity classification: adult class 3 (BMI >= 40) Serious obesity comorbidity presence: without serious comorbidity Body mass index: BMI 40.0-44.9 Qualified Code(s): E66.813 - Obesity, class 3; E66.01 - Morbid (severe) obesity due to excess calories; Z68.41 - Body mass index [BMI] 40.0-44.9, adult Category: Medical Code(s): E66.9 - Obesity, unspecified (5) Rubella non-immune status, antepartum: Status: Acute Category: Medical Code(s): O09.899 - Supervision of other high risk pregnancies, unspecified trimester; Z28.39 - Other underimmunization status Plan Continue frequent vital signs Continue PIH labs daily Discussed discontinuation of labetalol versus continuation of labetalol 200 twice daily. The patient elects to proceed with continuing this medication. Discussed the risk of missing preeclampsia. At this time if her blood pressure remains stable and her diagnosis is strictly preeclampsia or chronic hypertension with superimposed preeclampsia we will plan for delivery at 37 weeks. Continue to monitor this patient very carefully. She has no blood pressure elevations I will plan to discharge on Saturday or Saturday with twice-weekly outpatient follow-up and weekly labs as well as frequent ultrasound/Prospan/BPP's. Will plan for delivery at 37 weeks if no severe features present
[2025-01-29] MEDS: ACETAMINOPHEN 500MG TAB 1000 MG PO (16:03)
--- NOTE | 2025-01-29 16:30 | US_ITS ---
PROCEDURE INFORMATION: Exam: US Biophysical Profile Without Non-Stress Test Exam date and time: 01/29/2025 1:15 PM Age: 24 years old Clinical indication: Condition or disease; Other: Preeclampsia; ; Additional info: Pre-eclampsia TECHNIQUE: Imaging protocol: US biophysical profile without non-stress testing. COMPARISON: US OB BIOPHYSICAL PROFILE 01/26/2025 12:53 PM FINDINGS: heart rate: 140 bpm Placenta: Placenta is anterior. Amniotic fluid (Qualitative): 2 Amniotic fluid index: RADHA is 10.64 cm. The amniotic fluid index is 10.64 cm. Presentation is cephalic. Heart rate is 140 bpm. BIOPHYSICAL PROFILE: breathing (BPP): 2 /2 gross body movement (BPP): 2 /2 tone (BPP): 2 /2 Amniotic fluid (BPP): 2 /2 Biophysical profile score (BPP): 8 /8 MATERNAL ANATOMY: Cervix: Cervical length measures 4.39 cm. Other findings: Breathin; Movement: 2; Tone: 2 IMPRESSION: Biophysical profile score of 8.
--- NOTE | 2025-01-29 17:14 | EXP.PN ---
Subjective *Date: 01/29/25 *Time: 17:14 Interval history: Checked in on the patient this afternoon. Her blood pressures have been appropriate. She denies any vision changes but does endorse a low-grade headache. She has had Tylenol and caffeine. Reports that it was persistent and rates it a 3 out of 10. Denies any vision changes Exam Data for Last 24 hours Vital signs and Labs for Last 24 Hours: Temp Pulse Resp BP Pulse Ox O2 Del Method 98.2 F 96 H 18 131/62 99 Room Air 01/29/25 12:00 01/29/25 12:00 01/29/25 12:00 01/29/25 12:00 01/29/25 12:00 01/29/25 12:00 Laboratory Results - last 24 hr 01/29/25 05:09: WBC 13.9 H D, RBC 3.42 L, Hgb 8.5 L D, Hct 27.7 L, MCV 81.0, MCH 24.6 L, MCHC 30.3 L, RDW 15.1, Plt Count 290 D, MPV 9.7, Neut % (Auto) 68.5, Lymph % (Auto) 16.9, [place] % (Auto) 8.4, Eos % (Auto) 1.4, Baso % (Auto) 0.4, Neut # (Auto) 9.5 H, Lymph # (Auto) 2.4, [place] # (Auto) 1.2 H, Eos # (Auto) 0.2, Baso # (Auto) 0.1, Sodium 138, Potassium 3.5, Chloride 108 H, Carbon Dioxide 22, Anion Gap 11.5, BUN 5 L, Creatinine 0.40 L D, Estimated Creat Clear 192, Estimated GFR 193, Est GFR ( Amer) 233 D, Glucose 78 D, Uric Acid 2.4 L, Calcium 8.6, Total Bilirubin 0.4, AST 30, ALT 20, Alkaline Phosphatase 135 H, Total Protein 6.4, Albumin 3.3 L D, Globulin 3.1, Albumin/Globulin Ratio 1.1 I & O for Last 24 hours: Intake & Output 01/26/25 01/27/25 01/28/25 01/29/25 23:59 23:59 23:59 23:59 Output Total 1400 / 1400 700 / 700 Balance -1400 / -1400 -700 / -700 Weight 257 lb Assessment and Plan *Assessment and plan (1) Preeclampsia: Status: Acute Category: Medical Code(s): O14.90 - Unspecified pre-eclampsia, unspecified trimester (2) Depression: Status: Acute Category: Medical Code(s): F32.A - Depression, unspecified (3) Anxiety: Status: Acute Category: Medical Code(s): F41.9 - Anxiety disorder, unspecified (4) Obesity: Status: Acute Qualifiers: Obesity type: due to excess calories Obesity classification: adult class 3 (BMI >= 40) Serious obesity comorbidity presence: without serious comorbidity Body mass index: BMI 40.0-44.9 Qualified Code(s): E66.813 - Obesity, class 3; E66.01 - Morbid (severe) obesity due to excess calories; Z68.41 - Body mass index [BMI] 40.0-44.9, adult Category: Medical Code(s): E66.9 - Obesity, unspecified (5) Rubella non-immune status, antepartum: Status: Acute Category: Medical Code(s): O09.899 - Supervision of other high risk pregnancies, unspecified trimester; Z28.39 - Other underimmunization status Plan Continue frequent vital signs Continue PIH labs daily Discussed discontinuation of labetalol versus continuation of labetalol 200 twice daily. The patient elects to proceed with continuing this medication. Discussed the risk of missing preeclampsia. At this time if her blood pressure remains stable and her diagnosis is strictly preeclampsia or chronic hypertension with superimposed preeclampsia we will plan for delivery at 37 weeks. Continue to monitor this patient very carefully. She has no blood pressure elevations I will plan to discharge on Saturday or Saturday with twice-weekly outpatient follow-up and weekly labs as well as frequent ultrasound/Prospan/BPP's. Will plan for delivery at 37 weeks if no severe features present There are several variables from her labs today that are much different than her labs yesterday to include her uric acid changing from 6-2.4. Her white blood cell count went from 10 to almost 14. Her hemoglobin went from a stable 11.7-8.5. Her platelets went from a stable repetitive at 174-290. Of note her urine protein to creatinine ratio was 0.5. Previously her urine protein to creatinine ratio was 0.18 on 01/14/2025. She had a 24-hour urine completed 01/16/2025 which showed proteinuria at 345.
[2025-01-29 20:34] VITALS: BP 130/73; PULSE 97; RESP 17; TEMP 36.6; O2SAT 98
[2025-01-29] MEDS: hydrOXYzine pamoate 25MG CAPSULE 50 MG PO (20:38)
[2025-01-30 04:00] VITALS: BP 128/58; PULSE 95; RESP 16; TEMP 36.7; O2SAT 98
[2025-01-30 08:39] LABS: Basophils % 0.2 % (0.1-2.0); Eosinophils # 0.1 Kmm3 (0.0-0.4); Eosinophils % 0.9 % (0.1-12.0); Hematocrit 32.4 % (37.0-47.0); Hemoglobin 11.1 g/dL (12.2-16.2); Lymphocytes # 1.4 K/mm3 (0.7-4.5); Lymphocytes % 13.2 % (10-50); Mean Corpuscular HGB Conc 34.3 g/dL (31.8-35.4); Mean Corpuscular Hemoglobin 31.7 pg (27.0-31.2); Mean Corpuscular Volume 92.6 fl (81-99); Mean Platelet Volume 11.5 fl (7.4-10.4); Monocytes # 0.4 K/mm3 (0.1-1.0); Monocytes % 4.2 % (1.7-9.3); Neutrophils # 8.5 K/mm3 (1.8-7.8); Neutrophils % 80.7 % (37.0-80.0); Nucleated Red Blood Cells # 0 10^3/uL; Nucleated Red Blood Cells % 0 %; Platelet Count 136 K/mm3 (142-424); Red Cell Distribution Width 13.3 % (11.5-17.5); Red Cell Distribution Width-SD 44.4 fL; White Blood Count 10.5 K/mm3 (4.8-10.8)
[2025-01-30 08:50] VITALS: BP 138/74; PULSE 103; RESP 18; TEMP 36.8; O2SAT 99
[2025-01-30] MEDS: LABETALOL 100MG TABLET 200 MG PO ×2 (08:53→21:06)
[2025-01-30 08:54] LABS: Albumin Level 3.3 g/dl (3.5-5.0); Chloride 108 mmol/L (98-107); Potassium 3.3 mmoL/L (3.5-5.1); Sodium 137 mmol/L (136-145)
[2025-01-30 08:57] LABS: Alanine Aminotransferase 22 U/L (12-78); Albumin/Globulin Ratio 1.1 (1.1-1.8); Alkaline Phosphatase 101 U/L (38-126); Anion Gap 14.3 mEq/L (5-15); Aspartate Amino Transferase 25 U/L (14-36); Bilirubin,Total 0.4 mg/dl (0.2-1.3); Blood Urea Nitrogen 5 mg/dl (7-17); Calcium 8.3 mg/dl (8.4-10.2); Carbon Dioxide 18 mmol/L (22.0-30.0); Creatinine Clearance Estimated 128 mL/min (50-200); Estimated Glomerular Filt Rate 121 ml/min (>60); GFR (African American) 146 ML/MIN (>60); Glucose 138 mg/dl (74-100); Total Protein,Serum 6.3 g/dl (6.3-8.2)
[2025-01-30 09:15] LABS: Uric Acid 5.2 mg/dl (2.5-6.2)
[2025-01-30 12:37] VITALS: BP 143/75; PULSE 102; RESP 18; O2SAT 99
[2025-01-30 15:45] VITALS: BP 134/64; PULSE 112; RESP 19; TEMP 36.9; O2SAT 98
[2025-01-30] MEDS: ACETAMINOPHEN 500MG TAB 1000 MG PO (15:55)
[2025-01-30] MEDS: ONDANSETRON 4MG/2ML VIAL 4 MG IV (17:01)
[2025-01-30 20:20] VITALS: BP 141/82; PULSE 110; RESP 17; TEMP 36.7; O2SAT 98
--- NOTE | 2025-01-30 20:31 | EXP.PN ---
Subjective *Date: 01/30/25 *Time: 20:31 Interval history: Dahlia is doing well, although stir crazy she is dying to go outside and not be stuck in her room. She states her headache improved yesterday and was gone for most of the day but recently returned. Rates it a 3/10. Parag vision changes or RUQ pain. Endorses very good movement. Her blood pressures have been well-controlled overnight. She and her partner desire steroids for FLM. Exam Data for Last 24 hours Vital signs and Labs for Last 24 Hours: Temp Pulse Resp BP Pulse Ox O2 Del Method 98.4 F 112 H 19 134/64 98 Room Air 01/30/25 15:45 01/30/25 15:45 01/30/25 15:45 01/30/25 15:45 01/30/25 15:45 01/30/25 15:45 Laboratory Results - last 24 hr 01/30/25 08:15: WBC 10.5, RBC 3.50 L, Hgb 11.1 L, Hct 32.4 L, MCV 92.6, MCH 31.7 H D, MCHC 34.3, RDW 13.3, Plt Count 136 L, MPV 11.5 H, Neut % (Auto) 80.7 H, Lymph % (Auto) 13.2, [place] % (Auto) 4.2, Eos % (Auto) 0.9, Baso % (Auto) 0.2, Neut # (Auto) 8.5 H, Lymph # (Auto) 1.4, [place] # (Auto) 0.4, Eos # (Auto) 0.1, Baso # (Auto) 0.0, Sodium 137, Potassium 3.3 L, Chloride 108 H, Carbon Dioxide 18 L, Anion Gap 14.3, BUN 5 L, Creatinine 0.60 D, Estimated Creat Clear 128, Estimated GFR 121, Est GFR ( Amer) 146 D, Glucose 138 H, Uric Acid 5.2, Calcium 8.3 L, Total Bilirubin 0.4, AST 25, ALT 22, Alkaline Phosphatase 101, Total Protein 6.3, Albumin 3.3 L, Globulin 3.0, Albumin/Globulin Ratio 1.1 I & O for Last 24 hours: Intake & Output 01/27/25 01/28/25 01/29/25 01/30/25 23:59 23:59 23:59 23:59 Intake Total 250 / 250 Output Total 1400 / 1400 950 / 950 3000 / 3000 Balance -1400 / -1400 -950 / -950 -2750 / -2750 Weight 257 lb Constitutional Constitutional: no acute distress *Routine HEENT Exam Head: Present normocephalic Eye: Present EOMI and PERRL ENT: Present mucous membranes moist *Routine Neck Exam Neck: Present supple; Absent lymphadenopathy *Routine Respiratory Exam Respiratory: Present CTA bilaterally *Routine Cardiovascular Exam Cardiovascular: Present RRR *Routine Abdominal Exam Abdominal: Present soft and normoactive bowel sounds; Absent tenderness *Routine Extremities Exam Extremities: Absent cyanosis, clubbing or edema Comments: Plus 2 out of 4 bilateral lower extremity reflexes *Routine Skin Exam Skin: Present warm; Absent rash *Routine Neurological Exam Neurological: Present alert and oriented X3 Assessment and Plan *Assessment and plan (1) Preeclampsia: Status: Acute Category: Medical Code(s): O14.90 - Unspecified pre-eclampsia, unspecified trimester (2) Depression: Status: Acute Category: Medical Code(s): F32.A - Depression, unspecified (3) Anxiety: Status: Acute Category: Medical Code(s): F41.9 - Anxiety disorder, unspecified (4) Obesity: Status: Acute Qualifiers: Obesity type: due to excess calories Obesity classification: adult class 3 (BMI >= 40) Serious obesity comorbidity presence: without serious comorbidity Body mass index: BMI 40.0-44.9 Qualified Code(s): E66.813 - Obesity, class 3; E66.01 - Morbid (severe) obesity due to excess calories; Z68.41 - Body mass index [BMI] 40.0-44.9, adult Category: Medical Code(s): E66.9 - Obesity, unspecified (5) Rubella non-immune status, antepartum: Status: Acute Category: Medical Code(s): O09.899 - Supervision of other high risk pregnancies, unspecified trimester; Z28.39 - Other underimmunization status Plan Continue frequent vital signs Continue PIH labs daily (add magnesium) Replacement electrolyte protocol ordered and potassium replaced today Continue labetalol 200 twice daily. The patient elects to proceed with continuing this medication. Discussed the risk of missing preeclampsia. At this time if her blood pressure remains stable and her diagnosis is strictly preeclampsia or chronic hypertension with superimposed preeclampsia we will plan for delivery at 37 weeks. Continue to monitor this patient very carefully. PIH labs: -Uric acid: 6 > 2.4 > 5.2. -Hgb: 11.7 > 8.5 > 11.1 -PLTs: 174 > 290 > 136 -Cr: 0.7 > 0.4 > 0.6 -AST/ALT: 25/19 > 30/20 > 25/22 Of note her urine protein to creatinine ratio was 0.5. Previously her urine protein to creatinine ratio was 0.18 on 01/14/2025. She had a 24-hour urine completed 01/16/2025 which showed proteinuria at 345.
[2025-01-30] MEDS: hydrOXYzine pamoate 25MG CAPSULE 50 MG PO (21:05)
[2025-01-30] MEDS: POTASSIUM CHLORIDE 20MEQ TAB 40 MEQ PO (21:05)
[2025-01-30] MEDS: BETAMETHASONE ACET/PHOS 6MG/ML 5ML MDV 12 MG IM (21:06)
[2025-01-31] MEDS: POTASSIUM CHLORIDE 20MEQ TAB 40 MEQ PO (00:33)
[2025-01-31 04:56] VITALS: BP 118/66; PULSE 109; RESP 20; TEMP 36.7; O2SAT 97
[2025-01-31 08:07] LABS: Basophils % 0.2 % (0.1-2.0); Eosinophils % 0.4 % (0.1-12.0); Hematocrit 33.6 % (37.0-47.0); Hemoglobin 11.5 g/dL (12.2-16.2); Lymphocytes % 9.5 % (10-50); Mean Corpuscular HGB Conc 34.2 g/dL (31.8-35.4); Mean Corpuscular Hemoglobin 31.7 pg (27.0-31.2); Mean Corpuscular Volume 92.6 fl (81-99); Mean Platelet Volume 11.7 fl (7.4-10.4); Monocytes # 0.3 K/mm3 (0.1-1.0); Monocytes % 2.6 % (1.7-9.3); Neutrophils # 9.1 K/mm3 (1.8-7.8); Neutrophils % 86.2 % (37.0-80.0); Nucleated Red Blood Cells # 0 10^3/uL; Nucleated Red Blood Cells % 0 %; Platelet Count 150 K/mm3 (142-424); Red Blood Count 3.63 M/mm3 (4.20-5.40); Red Cell Distribution Width 13.2 % (11.5-17.5); Red Cell Distribution Width-SD 44.3 fL; White Blood Count 10.6 K/mm3 (4.8-10.8)
[2025-01-31 08:17] LABS: Albumin Level 3.5 g/dl (3.5-5.0); Chloride 109 mmol/L (98-107); Potassium 4.3 mmoL/L (3.5-5.1); Sodium 136 mmol/L (136-145)
[2025-01-31 08:19] VITALS: BP 119/67; PULSE 108; RESP 18; TEMP 36.7; O2SAT 98
[2025-01-31 08:19] LABS: Blood Urea Nitrogen 5 mg/dl (7-17); Creatinine Clearance Estimated 153 mL/min (50-200); Estimated Glomerular Filt Rate 149 ml/min (>60); GFR (African American) 180 ML/MIN (>60)
[2025-01-31] MEDS: LABETALOL 100MG TABLET 200 MG PO ×2 (08:19→20:23)
[2025-01-31] MEDS: PRENATAL MULTIVITAMIN W/IRON 1 EACH PO (08:19)
[2025-01-31 08:20] LABS: Alanine Aminotransferase 15 U/L (12-78); Albumin/Globulin Ratio 1.1 (1.1-1.8); Alkaline Phosphatase 104 U/L (38-126); Anion Gap 13.3 mEq/L (5-15); Aspartate Amino Transferase 21 U/L (14-36); Bilirubin,Total 0.4 mg/dl (0.2-1.3); Calcium 9.2 mg/dl (8.4-10.2); Carbon Dioxide 18 mmol/L (22.0-30.0); Globulin 3.2 g/dL (1.3-3.2); Glucose 118 mg/dl (74-100); Total Protein,Serum 6.7 g/dl (6.3-8.2)
[2025-01-31 08:42] LABS: Uric Acid 4.9 mg/dl (2.5-6.2)
[2025-01-31 12:00] VITALS: BP 113/62; PULSE 102; RESP 17; TEMP 36.5; O2SAT 98
[2025-01-31 17:18] VITALS: BP 133/65; PULSE 102; RESP 18; TEMP 36.4; O2SAT 98
--- NOTE | 2025-01-31 19:30 | P.DS_ITS ---
General Admission date:: 01/28/25 Discharge date: 01/31/25 HPI HPI HPI: Dahlia Salinas is a 24-year-old G1, P0 who presented to the office today with elevated blood pressures. At home her blood pressures have been within normal limits. She does have a diagnosis of preeclampsia. There is a complicated picture on if this is chronic hypertension with superimposed preeclampsia versus gestational hypertension which is turned into preeclampsia. She was sent over to labor and delivery for prolonged monitoring and possibly delivery if indicated. She was previously sent to labor and delivery on 01/18/2025 and rec eived 2 doses of steroids during this time. She was started on labetalol 200 mg twice daily at this time as well. She denies any headaches, vision changes, or right upper quadrant pain today. Her 1 hour GTT was 150. She refused to do the 3-hour GTT and has been monitoring her blood glucose. They have been within normal limits. OB ultrasound reviewed - Most recent ultrasound on 01/26/2025: BPP 8/8. RADHA: 8.2. MVP: 3.1 cm. Anterior grade 2 placenta. Fetus was cephalic. - Ultrasound on 01/21/2025 at 33 weeks and 1 day gestation. EFW: 2383 g, 5 pounds 4 ounces. BPD: 44%, HC: 11%, AC: 94%, FL: 52%. 75th percentile overall. BPP: 8/8. MVP: 4.6 cm. Cervix was long thick and closed at 3.76 cm. Hospital Course Hospital Course Hospital Course: Dahlia Salinas is a 24-year-old G1, P0 who was admitted for delivery for close monitoring. She has a diagnosis of preeclampsia. She was being evaluated for discrimination between gestational hypertension which had progressed to preeclampsia versus chronic hypertension with superimposed preeclampsia. We were also monitoring her closely for severe features. Today when reviewing signs and symptoms with the patient she reports that since she was a teenager for probably the last 5 to 10 years she has been told that she has elevated blood pressure at most of her doctors visits. While she has remained inpatient she has had all very normal blood pressures 1 this morning was so low that it almost required holding her labetalol. She has had 2 very mild headaches which resolved easily. At this time she denies any headaches, vision changes, right upper quadrant pain. Strict return precautions were reviewed with her. Strict preeclampsia/eclampsia signs and symptoms were discussed with her. She was discharged home and her follow-up was reviewed multiple times with her. On discharge her [facility] labs were very appropriate. Yesterday a very extensive long greater than 45-minute risk and benefit discussion on late steroids was completed. We discussed neurodevelopmental disorders, autism, ADHD, lung maturity, respiratory distress syndrome, transient tachypnea of the . The patient elected to proceed with late term betamethasone. She will receive her second dose tonight prior to discharge Exam Data for Last 24 hours Vital signs and Labs for Last 24 Hours: Temp Pulse Resp BP Pulse Ox O2 Del Method 97.6 F 102 H 18 133/65 98 Room Air 01/31/25 17:18 01/31/25 17:18 01/31/25 17:18 01/31/25 17:18 01/31/25 17:18 01/31/25 17:18 Laboratory Results - last 24 hr 01/31/25 07:50: WBC 10.6, RBC 3.63 L, Hgb 11.5 L, Hct 33.6 L, MCV 92.6, MCH 31.7 H, MCHC 34.2, RDW 13.2, Plt Count 150, MPV 11.7 H, Neut % (Auto) 86.2 H, Lymph % (Auto) 9.5 L, [place] % (Auto) 2.6, Eos % (Auto) 0.4, Baso % (Auto) 0.2, Neut # (Auto) 9.1 H, Lymph # (Auto) 1.0, [place] # (Auto) 0.3, Eos # (Auto) 0.0, Baso # (Auto) 0.0, Sodium 136, Potassium 4.3 D, Chloride 109 H, Carbon Dioxide 18 L, Anion Gap 13.3, BUN 5 L, Creatinine 0.50 L, Estimated Creat Clear 153, Estimated GFR 149, Est GFR ( Amer) 180 D, Glucose 118 H, Uric Acid 4.9, Calcium 9.2, Total Bilirubin 0.4, AST 21, ALT 15 D, Alkaline Phosphatase 104, Total Protein 6.7, Albumin 3.5, Globulin 3.2, Albumin/Globulin Ratio 1.1 I & O for Last 24 hours: Intake & Output 01/28/25 01/29/25 01/30/25 01/31/25 23:59 23:59 23:59 23:59 Intake Total 250 / 250 Output Total 1400 / 1400 950 / 950 3750 / 3750 1550 / 1550 Balance -1400 / -1400 -950 / -950 -3500 / -3500 -1550 / -1550 Weight 257 lb Constitutional Constitutional: no acute distress *Routine HEENT Exam Head: Present normocephalic Eye: Present EOMI and PERRL ENT: Present mucous membranes moist *Routine Neck Exam Neck: Present supple; Absent lymphadenopathy *Routine Respiratory Exam Respiratory: Present CTA bilaterally *Routine Cardiovascular Exam Cardiovascular: Present RRR *Routine Abdominal Exam Abdominal: Present soft and normoactive bowel sounds; Absent tenderness *Routine Extremities Exam Extremities: Absent cyanosis, clubbing or edema Comments: Plus 2 out of 4 bilateral lower extremity reflexes *Routine Skin Exam Skin: Present warm; Absent rash *Routine Neurological Exam Neurological: Present alert and oriented X3 Results Data Completed and Pending Labs on day of discharge: Labs from last 24 hours 01/31/25 07:50 WBC 10.6 RBC 3.63 L Hgb 11.5 L Hct 33.6 L MCV 92.6 MCH 31.7 H MCHC 34.2 RDW 13.2 Plt Count 150 MPV 11.7 H Neut % (Auto) 86.2 H Lymph % (Auto) 9.5 L [place] % (Auto) 2.6 Eos % (Auto) 0.4 Baso % (Auto) 0.2 Neut # (Auto) 9.1 H Lymph # (Auto) 1.0 [place] # (Auto) 0.3 Eos # (Auto) 0.0 Baso # (Auto) 0.0 Sodium 136 Potassium 4.3 D Chloride 109 H Carbon Dioxide 18 L Anion Gap 13.3 BUN 5 L Creatinine 0.50 L Estimated Creat Clear 153 Estimated GFR 149 Est GFR ( Amer) 180 D Glucose 118 H Uric Acid 4.9 Calcium 9.2 Total Bilirubin 0.4 AST 21 ALT 15 D Alkaline Phosphatase 104 Total Protein 6.7 Albumin 3.5 Globulin 3.2 Albumin/Globulin Ratio 1.1 DS: Diagnosis Discharge Diagnosis (1) Preeclampsia: Status: Acute Code(s): O14.90 - Unspecified pre-eclampsia, unspecified trimester (2) Depression: Status: Acute Code(s): F32.A - Depression, unspecified (3) Anxiety: Status: Acute Code(s): F41.9 - Anxiety disorder, unspecified (4) Obesity: Status: Acute Code(s): E66.9 - Obesity, unspecified Qualifiers: Obesity type: due to excess calories Obesity classification: adult class 3 (BMI >= 40) Serious obesity comorbidity presence: without serious comorbidity Body mass index: BMI 40.0-44.9 Qualified Code(s): E66.813 - Obesity, class 3; E66.01 - Morbid (severe) obesity due to excess calories; Z68.41 - Body mass index [BMI] 40.0-44.9, adult (5) Rubella non-immune status, antepartum: Status: Acute Code(s): O09.899 - Supervision of other high risk pregnancies, unspecified trimester; Z28.39 - Other underimmunization status (6) Chronic hypertension: Status: Acute Code(s): I10 - Essential (primary) hypertension Meds Home Medications and Allergies Home Medications ?Medication ?Instructions ?Recorded ?Confirmed ?Type vits no.130-ferrous fum 1 tab PO DAILY 08/04/24 01/28/25 History 27 mg iron-folic acid 800 mcg tablet ( Vitamin) hydroxyzine HCl 50 mg tablet 50 mg PO HS #30 tabs 11/18/24 01/28/25 Rx blood-glucose meter #1 ea 12/25/24 01/28/25 Rx labetalol 200 mg tablet 200 mg PO BID #60 tabs 01/21/25 01/28/25 Rx ondansetron HCl 4 mg tablet 4 mg PO Q8HP PRN nausea and 01/28/25 01/28/25 H istory vomiting New Prescriptions to Start Prescriptions: Allergies Allergy/AdvReac Type Severity Reaction Status Date / Time No Known Allergies Allergy Verified 01/28/25 10:59 Discharge Plan Disposition Patient Disposition: Home, Self-Care Discharge Order Discharge Orders: Discharge Order (Routine); Ordered 01/31/25 Ordered By: Celeste Carreon Follow up Plan Follow up with: Celeste Carreon DO [Staff Physician] - Enter time for follow up Prescriptions/Medication Reconciliation: Continued Vitamin 27 mg iron- 800 mcg tablet 1 tab PO DAILY Patient Comments: TAKE 1 TABLET BY MOUTH ONCE DAILY. hydroxyzine HCl 50 mg tablet 50 mg PO HS Qty: 30 3RF (DME) blood-glucose meter Kit See Rx Instructions .Route Qty: 1 0RF Rx Instructions: Test Blood sugar QID, Fasting and 2 hours after each meal. labetalol 200 mg Tablet 200 mg PO BID Qty: 60 0RF ondansetron HCl 4 mg tablet 4 mg PO Q8HP PRN (Reason: nausea and vomiting) Problem Reconciliation Problems Reviewed?: Yes Patient Discharge Instructions ACTIVITY: Continue current activity DIET: regular diet Print Language: Yakut Providers Primary Care Provider: Deandre Dimas Admit Provider: Celeste Carreon Attending Provider: Celeste Carreon
[2025-01-31 20:10] VITALS: BP 135/79; PULSE 104; RESP 17; TEMP 36.8; O2SAT 99
[2025-01-31] MEDS: BETAMETHASONE ACET/PHOS 6MG/ML 5ML MDV 12 MG IM (20:24)
== END 2025-01-31 20:48 | disposition home or self-care (01) | DRG 833 ==
PROVIDERS: Admitting Provider Obstetrics & Gynecology; PCP Family Medicine; Visit Provider Obstetrics & Gynecology
DX: O11.3 Pre-existing hypertension with pre-eclampsia, third trimester (principal); O10.913 Unspecified pre-existing hypertension complicating pregnancy, third trimester; Z3A.34 34 weeks gestation of pregnancy; E66.813 Obesity, class 3; O99.343 Other mental disorders complicating pregnancy, third trimester; F41.8 Other specified anxiety disorders; O99.213 Obesity complicating pregnancy, third trimester
CPT/HCPCS: 36415; 59025; 76819; 80053; 81001; 82570; 84156; 84550; 85025; 86403; 86592; J0702; J2405

== ENCOUNTER 2025-02-02 12:35 | Outpatient (CLI) | payer BC, SELFPAY ==
--- NOTE | 2025-02-02 13:00 | US_ITS ---
PROCEDURE: US OB BIOPHYSICAL PROFILE CLINICAL INDICATION: Needs 02/02/25 for gestationhypertension COMPARISON: US US OB /MATERNAL DETAIL from 10/23/2024 US US OB BIOPHYSICAL PROFILE from 01/21/2025 US OB BIOPHYSICAL PROFILE from 01/26/2025 US OB BIOPHYSICAL PROFILE from 01/29/2025 FINDINGS: Transabdominal sonographic images of the uterus were obtained. From her established due date she is 34weeks 6days. The following parameters are obtained: Viable Fetus in the cephalic presentation with an anterior placenta grade 2-3. The cervix measures 3.61 cm Measurements: heart Rate = 152bpm Amniotic fluid index: 9.17cm, MVP 3.15 cm Qualitative AFV:2 Breathing movements: 2 Gross Body Movements: 2 Tone: 2 Biophysical profile score: 8 No obvious anomalies evident.Kidneys, profile, stomach, bladder, four-chamber heart, three-vessel cord appear normal. IMPRESSION: 1. Viable fetus in the cephalic presentation with an anterior placenta grade 2-3. 2. The fluid is within normal limits with an amniotic fluid index 9.17 cm, MVP 3.15 cm. 3. Biophysical profile is 8/8 with good breathing movement and movement seen. 4. Limited anatomical scan appears normal. Dictated by: Anthony Rodriguez MD 02/02/2025 19:46 Anthony Rodriguez MD in [place] 02/02/2025 19:46
== END 2025-02-02 23:59 | disposition home or self-care (01) ==
LOC: RAD 12:35
PROVIDERS: PCP Family Medicine; Visit Provider Obstetrics & Gynecology
DX: O13.3 Gestational [pregnancy-induced] hypertension without significant proteinuria, third trimester (principal)
CPT/HCPCS: 76819

== ENCOUNTER 2025-02-05 11:19 | Outpatient (CLI) | payer BC, SELFPAY ==
[2025-02-05 11:34] VITALS: BMI 42.0
[2025-02-05 11:48] LABS: Microscopic, Urine URINE MICROSCOPIC (MICROSCOPIC)
[2025-02-05 11:50] LABS: Appearance,Urine CLEAR (Clear); Bilirubin,Urine Negative (Negative); Blood, Urine Negative (Negative); Color,Urine YELLOW (Yellow); Glucose,Urine (UA) Negative (Negative); Ketones,Urine Negative (Negative); Leukocyte Esterase,Urine TRACE (Negative); Nitrate,Urine Negative (Negative); PH,Urine 6.5 (5.0-8.5); Protein,Urine Negative (Negative); Specific Gravity, Urine <= 1.005 (1.005-1.030); Urobilinogen,Urine 0.2 EU/dl (0.2)
[2025-02-05 12:10] LABS: Creatinine,Urine Random 39 mg/dL (Not Estab.); WBC,Urine Occasional #/hpf (0-3)
[2025-02-05 12:11] LABS: Bacteria,Urine Trace /lpf
--- NOTE | 2025-02-05 12:20 | US_ITS ---
PROCEDURE INFORMATION: Exam: US Biophysical Profile Without Non-Stress Test Exam date and time: 02/05/2025 12:28 PM Age: 24 years old Clinical indication: Other: Non reactive nst; ; Additional info: Non-reactive strip in office TECHNIQUE: Imaging protocol: US biophysical profile without non-stress testing. COMPARISON: US OB BIOPHYSICAL PROFILE 02/02/2025 12:52 PM FINDINGS: Gestation: Single intrauterine containing a fetus heart rate: 150 bpm Placenta: Placenta is anterior, grade 2-3 Amniotic fluid index: RADHA is 11.39 cm. BIOPHYSICAL PROFILE: breathing (BPP): 2 /2 gross body movement (BPP): 2 /2 tone (BPP): 2 /2 Amniotic fluid (BPP): 2 /2 Biophysical profile score (BPP): 8 /8 MATERNAL ANATOMY: Cervix: Cervical length measures 3.17 cm. IMPRESSION: Biophysical profile 05/21
[2025-02-05 12:27] LABS: Basophils % 0.2 % (0.1-2.0); Eosinophils # 0.1 Kmm3 (0.0-0.4); Eosinophils % 0.9 % (0.1-12.0); Hematocrit 34.1 % (37.0-47.0); Hemoglobin 11.7 g/dL (12.2-16.2); Lymphocytes % 18.2 % (10-50); Mean Corpuscular HGB Conc 34.3 g/dL (31.8-35.4); Mean Corpuscular Hemoglobin 31.8 pg (27.0-31.2); Mean Corpuscular Volume 92.7 fl (81-99); Mean Platelet Volume 11.1 fl (7.4-10.4); Monocytes # 0.6 K/mm3 (0.1-1.0); Monocytes % 5.7 % (1.7-9.3); Neutrophils # 8.3 K/mm3 (1.8-7.8); Neutrophils % 73.8 % (37.0-80.0); Nucleated Red Blood Cells # 0 10^3/uL; Nucleated Red Blood Cells % 0 %; Platelet Count 178 K/mm3 (142-424); Red Blood Count 3.68 M/mm3 (4.20-5.40); Red Cell Distribution Width 13.2 % (11.5-17.5); Red Cell Distribution Width-SD 44.4 fL; White Blood Count 11.2 K/mm3 (4.8-10.8)
[2025-02-05 12:34] VITALS: BP 149/87; PULSE 94; RESP 18; TEMP 36.7; O2SAT 96; BMI 42.0
[2025-02-05 12:37] LABS: Alanine Aminotransferase 15 U/L (12-78); Albumin Level 3.7 g/dl (3.5-5.0); Albumin/Globulin Ratio 1.2 (1.1-1.8); Alkaline Phosphatase 108 U/L (38-126); Anion Gap 10.8 mEq/L (5-15); Aspartate Amino Transferase 19 U/L (14-36); Bilirubin,Total 0.4 mg/dl (0.2-1.3); Blood Urea Nitrogen 5 mg/dl (7-17); Calcium 9.3 mg/dl (8.4-10.2); Carbon Dioxide 24 mmol/L (22.0-30.0); Chloride 106 mmol/L (98-107); Creatinine Clearance Estimated 110 mL/min (50-200); Estimated Glomerular Filt Rate 101 ml/min (>60); GFR (African American) 122 ML/MIN (>60); Globulin 3.2 g/dL (1.3-3.2); Glucose 87 mg/dl (74-100); Potassium 3.8 mmoL/L (3.5-5.1); Sodium 137 mmol/L (136-145); Total Protein,Serum 6.9 g/dl (6.3-8.2); Uric Acid 5.8 mg/dl (2.5-6.2)
[2025-02-05 13:07] LABS: Activated Partial Thrombo Time 26.6 seconds (22.8-30.6); INR 0.91 (0.9-1.1); Prothrombin Time 10.6 seconds (10.1-12.5)
[2025-02-05 14:14] LABS: Fibrinogen 446 mg/dL (229.9-363.5)
== END 2025-02-05 12:59 | disposition home or self-care (01) ==
LOC: OBOUT 11:21 → OB 11:22
PROVIDERS: Obstetrics & Gynecology; PCP Family Medicine; Visit Provider Obstetrics & Gynecology
DX: O36.8130 Decreased fetal movements, third trimester, not applicable or unspecified (principal); Z3A.35 35 weeks gestation of pregnancy
CPT/HCPCS: 36415; 76819; 80053; 81001; 82570; 84156; 84550; 85025; 85384; 85610; 85730; G0463

== ENCOUNTER 2025-02-09 12:21 | Outpatient (CLI) | payer BC, SELFPAY ==
--- NOTE | 2025-02-09 13:00 | US_ITS ---
PROCEDURE: US OB BIOPHYSICAL PROFILE CLINICAL INDICATION: Needs 02/09/25 for gestational hypertension COMPARISON: US US OB /MATERNAL DETAIL from 10/23/2024 US OB BIOPHYSICAL PROFILE from 01/21/2025 US OB BIOPHYSICAL PROFILE from 01/26/2025 US OB BIOPHYSICAL PROFILE from 01/29/2025 [facility] OB BIOPHYSICAL PROFILE from 02/02/2025 [facility] OB BIOPHYSICAL PROFILE from 02/05/2025 FINDINGS: Transabdominal sonographic images of the uterus were obtained. From her established due date she is 35weeks 6days. The following parameters are obtained: Viable Fetus in the cephalic presentation with an anterior placenta grade 2-3. The cervix measures 3.04 cm Measurements: heart Rate = 144bpm Amniotic fluid index: 8.37cm, MVP 3.09 cm Qualitative AFV:2 Breathing movements: 2 Gross Body Movements: 2 Tone: 2 Biophysical profile score: 8 No obvious anomalies evident.Kidneys, profile, bladder, stomach, four-chamber heart, three-vessel cord appear normal. IMPRESSION: 1. Viable fetus in the cephalic presentation with an anterior placenta grade 2-3. 2. The fluid is within normal limits with an amniotic fluid index 8.37 cm, MVP 3.09 cm. 3. Biophysical profile is 8/8 with good breathing movement and movement seen. 4. Limited anatomical scan appears normal. Dictated by: Anthony Rodriguez MD 02/09/2025 15:12 Anthony Rodriguez MD in [place] 02/09/2025 15:12
== END 2025-02-09 23:59 | disposition home or self-care (01) ==
LOC: RAD 12:21
PROVIDERS: PCP Family Medicine; Visit Provider Obstetrics & Gynecology
DX: O13.3 Gestational [pregnancy-induced] hypertension without significant proteinuria, third trimester (principal)
CPT/HCPCS: 76819

== ENCOUNTER 2025-02-12 11:24 | Outpatient (CLI) | payer BC, SELFPAY ==
[2025-02-12 11:43] LABS: Basophils % 0.3 % (0.1-2.0); Eosinophils # 0.2 Kmm3 (0.0-0.4); Eosinophils % 1.5 % (0.1-12.0); Hematocrit 34.6 % (37.0-47.0); Lymphocytes # 1.9 K/mm3 (0.7-4.5); Lymphocytes % 17.2 % (10-50); Mean Corpuscular HGB Conc 34.7 g/dL (31.8-35.4); Mean Corpuscular Hemoglobin 31.7 pg (27.0-31.2); Mean Corpuscular Volume 91.5 fl (81-99); Mean Platelet Volume 11.3 fl (7.4-10.4); Monocytes # 0.5 K/mm3 (0.1-1.0); Monocytes % 4.8 % (1.7-9.3); Neutrophils # 8.1 K/mm3 (1.8-7.8); Neutrophils % 75.3 % (37.0-80.0); Nucleated Red Blood Cells # 0 10^3/uL; Nucleated Red Blood Cells % 0 %; Platelet Count 184 K/mm3 (142-424); Red Blood Count 3.78 M/mm3 (4.20-5.40); Red Cell Distribution Width-SD 42.9 fL; White Blood Count 10.8 K/mm3 (4.8-10.8)
[2025-02-12 12:00] LABS: Alanine Aminotransferase 14 U/L (12-78); Albumin Level 3.5 g/dl (3.5-5.0); Albumin/Globulin Ratio 1.1 (1.1-1.8); Alkaline Phosphatase 106 U/L (38-126); Aspartate Amino Transferase 20 U/L (14-36); Bilirubin,Total 0.5 mg/dl (0.2-1.3); Blood Urea Nitrogen 5 mg/dl (7-17); Calcium 9.1 mg/dl (8.4-10.2); Carbon Dioxide 21 mmol/L (22.0-30.0); Chloride 109 mmol/L (98-107); Estimated Glomerular Filt Rate 121 ml/min (>60); GFR (African American) 146 ML/MIN (>60); Globulin 3.2 g/dL (1.3-3.2); Glucose 84 mg/dl (74-100); Sodium 135 mmol/L (136-145); Total Protein,Serum 6.7 g/dl (6.3-8.2); Uric Acid 5.1 mg/dl (2.5-6.2)
== END 2025-02-12 23:59 | disposition home or self-care (01) ==
LOC: LAB 11:25
PROVIDERS: PCP Family Medicine; Visit Provider Obstetrics & Gynecology
DX: O14.93 Unspecified pre-eclampsia, third trimester (principal); Z3A.36 36 weeks gestation of pregnancy
CPT/HCPCS: 36415; 80053; 84550; 85025

== ENCOUNTER 2025-02-16 12:30 | Outpatient (CLI) | payer BC, SELFPAY ==
--- NOTE | 2025-02-16 13:00 | US_ITS ---
PROCEDURE: US OB BIOPHYSICAL PROFILE CLINICAL INDICATION: Needs 02/16/25 for gestationhypertension COMPARISON: US US OB /MATERNAL DETAIL from 10/23/2024 US OB BIOPHYSICAL PROFILE from 01/21/2025 US OB BIOPHYSICAL PROFILE from 01/26/2025 US OB BIOPHYSICAL PROFILE from 01/29/2025 US OB BIOPHYSICAL PROFILE from 02/02/2025 US OB BIOPHYSICAL PROFILE from 02/05/2025 US OB BIOPHYSICAL PROFILE from 02/09/2025 FINDINGS: Transabdominal sonographic images of the uterus were obtained. From her established due date she is 36weeks 6days. The following parameters are obtained: Viable Fetus in the cephalic presentation with an anterior placenta grade 3. Average ultrasound age is 37weeks 0 days Estimated weight 3,093g, 6 lb 13 oz The cervix measures 2.8 cm. Measurements: heart Rate = 150bpm BPD = 35weeks 2days, 20 percentile HC = 37weeks 4days, 37 percentile AC = 37weeks 2days, 72 percentile FL = 37weeks 3days, 61 percentile HC/AC is 0.99 FL/BPD is 0.84 FL/AC is 0.22 60 percentile Amniotic fluid index: 6.45cm, MVP 3.20 cm Qualitative AFV:2 Breathing movements: 2 Gross Body Movements: 2 Tone: 2 Biophysical profile score: 8 No obvious anomalies evident.Kidneys, profile, four-chamber heart, three-vessel cord appear normal. IMPRESSION: 1. Viable fetus in the cephalic presentation with an anterior placenta grade 3. 2. The fluid appears subjectively low with an amniotic fluid index 6.45 cm, MVP 3.20 cm. 3. There has been good interval growth with the fetus currently 60th percentile. 4. Biophysical profile is 8/8 with good breathing movement and movement seen. 5. Limited anatomical scan appears normal. Dictated by: Anthony Rodriguez MD 02/16/2025 14:49 Anthony Rodriguez MD in [place] 02/16/2025 14:49
== END 2025-02-16 23:59 | disposition home or self-care (01) ==
LOC: RAD 12:30
PROVIDERS: PCP Family Medicine; Visit Provider Obstetrics & Gynecology
DX: O13.3 Gestational [pregnancy-induced] hypertension without significant proteinuria, third trimester (principal); Z3A.36 36 weeks gestation of pregnancy
CPT/HCPCS: 76816; 76819

== ENCOUNTER 2025-02-18 12:19 | Inpatient (IN) | payer BC, SELFPAY ==
[2025-02-18 12:24] VITALS: BMI 42.0
[2025-02-18 13:26] LABS: Microscopic, Urine URINE MICROSCOPIC (MICROSCOPIC)
[2025-02-18 13:27] LABS: Appearance,Urine CLEAR (Clear); Bilirubin,Urine Negative (Negative); Blood, Urine Negative (Negative); Color,Urine YELLOW (Yellow); Glucose,Urine (UA) Negative (Negative); Ketones,Urine Negative (Negative); Leukocyte Esterase,Urine TRACE (Negative); Nitrate,Urine Negative (Negative); PH,Urine 6.5 (5.0-8.5); Protein,Urine Negative (Negative); Urobilinogen,Urine 0.2 EU/dl (0.2)
[2025-02-18 13:38] LABS: Fetal Membrane Rupture (Rapid) Negative (Negative)
[2025-02-18 13:40] LABS: Bacteria,Urine Trace /lpf; WBC,Urine Occasional #/hpf (0-3)
[2025-02-18 13:43] LABS: Basophils % 0.4 % (0.1-2.0); Eosinophils # 0.2 Kmm3 (0.0-0.4); Hematocrit 32.1 % (37.0-47.0); Hemoglobin 11.2 g/dL (12.2-16.2); Immature Granulocytes # 0.09 10^3uL; Immature Granulocytes % 1.1 %; Lymphocytes # 1.9 K/mm3 (0.7-4.5); Mean Corpuscular HGB Conc 34.9 g/dL (31.8-35.4); Mean Corpuscular Hemoglobin 31.8 pg (27.0-31.2); Mean Corpuscular Volume 91.2 fl (81-99); Mean Platelet Volume 11.4 fl (7.4-10.4); Monocytes # 0.3 K/mm3 (0.1-1.0); Neutrophils % 70.5 % (37.0-80.0); Nucleated Red Blood Cells # 0 10^3/uL; Nucleated Red Blood Cells % 0 %; Platelet Count 162 K/mm3 (142-424); Red Blood Count 3.52 M/mm3 (4.20-5.40); Red Cell Distribution Width 13.1 % (11.5-17.5); Red Cell Distribution Width-SD 42.5 fL; White Blood Count 8.5 K/mm3 (4.8-10.8)
[2025-02-18 13:47] VITALS: BP 144/81; PULSE 109; RESP 18; TEMP 37.1; O2SAT 97; BMI 42.0
[2025-02-18] MEDS: miSOPROStol 100MCG TABLET 50 MCG PO ×2 (14:50→21:06)
[2025-02-18] MEDS: hydrOXYzine pamoate 25MG CAPSULE 50 MG PO (21:05)
[2025-02-18] MEDS: LABETALOL 100MG TABLET 200 MG PO (21:06)
[2025-02-19 00:24] LABS: RPR W/RFX Titers Nonreactive (Nonreactive)
[2025-02-19] MEDS: ALUMINUM/MAGNESIUM/SIMETHICONE 30ML UDC 30 ML PO (00:46)
[2025-02-19] MEDS: miSOPROStol 100MCG TABLET 50 MCG PO ×2 (03:11→08:13)
[2025-02-19] MEDS: DEXTROSE 5%-LACTATED RINGERS 1,000 ML 125 ML IV ×2 (08:12→10:20)
[2025-02-19] MEDS: LABETALOL 100MG TABLET 200 MG PO ×2 (08:13→20:49)
[2025-02-19] MEDS: LACTATED RINGERS 1000ML 1,000 ML 500 ML IV ×2 (08:13→10:18)
[2025-02-19] MEDS: OXYTOCIN/RINGERS LACTATE 30 UNITS/500 ML BAG IV (10:11)
--- NOTE | 2025-02-19 13:06 | EXP.LABOR.NO ---
Labor Note Subjective: Date: 02/19/25 Time: 13:06 irregular contractions Comment:: not feeling any contractions Objective: NST:: Reactive Contractions:: every 2-3 minutes Cervical Dilation:: 1 Effacement:: 50% Station: -3 Membranes: intact Fetus: Monitoring?: Yes monitoring type:: External Plan: Anesthesia for epidural?: No Plan for ?: No Comment:: Discussed options for cervical ripening. Pt refuses cervical ripening balloon. Has had 3 doses of 50mcg PO cytotec and one dose of 50mcg vaginal cytotec. No cervical change noted. Pt is hesitant to have another dose of cytotec as it is not working . Considering cervidil. Will think about it and let us know at 13:30. Discussed pitocin not indicated until further cervical ripening secondary to prolonged pitocin and hemorrhage risk and that the denise score was not appropriate for pitocin induction at this time. Pt voiced undrstanding.
--- NOTE | 2025-02-19 18:36 | EXP.LABOR.NO ---
Labor Note Subjective: Date: 02/19/25 Time: 18:36 irregular contractions Fetus: Monitoring?: Yes monitoring type:: External Plan: Comment:: Patient states plans for an epidural when the pain increases. Currently rates her pain about a 4 out of 10. No cervical change noted Patient elected to proceed with Pitocin, Pitocin started at 2 PM
[2025-02-19 19:14] VITALS: RESP 19
[2025-02-19 20:49] VITALS: BP 144/74; PULSE 94; RESP 18; TEMP 36.7
[2025-02-19] MEDS: hydrOXYzine pamoate 25MG CAPSULE 50 MG PO (20:49)
[2025-02-19] MEDS: FAMOTIDINE 20MG TABLET 20 MG PO (20:49)
[2025-02-19 21:29] VITALS: BP 118/58; PULSE 96
[2025-02-19] MEDS: DEXTROSE 5%-LACTATED RINGERS 1,000 ML 20 ML IV (22:22)
[2025-02-19 22:29] VITALS: BP 152/65; PULSE 101; RESP 21; TEMP 37.3
[2025-02-19 23:14] VITALS: BP 141/91; PULSE 87; RESP 17
[2025-02-19] MEDS: BUTORPHANOL TARTRATE 1 MG/ML VIAL IV (23:27)
[2025-02-20] VITALS (8 sets, daily range): BP systolic 122–150; BP diastolic 59–75; PULSE 83–104; RESP 16–24; TEMP 36.6–37.1; O2SAT 98
[2025-02-20] MEDS: LACTATED RINGERS 1000ML 1,000 ML 999 ML IV (00:06)
--- NOTE | 2025-02-20 01:41 | EXP.ANES.CKL ---
[facility] Disclaimer: The information contained in this section may have been updated after the patient was seen, as this information can be updated by other users. 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 Anxiety Depression Surgical History Hx of anterior cruciate ligament surgery Social History (Updated 02/18/25 @ 13:54 by Peri Peters RN) Smoking Status: Never smoker alcohol intake: never substance use type: denies use current occupational status: unemployed Travel in the last 8 weeks?: None [facility] Anesthesia Checklist Patient Identification Patient Identification: Arm Band Structural Data Admitted From: Inpatient Planned Operative Procedure/s: Labor Epidural Consent for Planned Operative Procedure(s) Verified: Yes Verified Documents: Surgical Consent and History and Physical Additional verifications Anesthesia Reactions: No Anesthesia Plan Anesthesia Risk discussed: Yes Anesthesia Plan: Verified ASA Class: II Anesthesia Type: Epidural
[2025-02-20] MEDS: ePHEDrine SULF 50MG/ML VIAL 10 MG IV (02:37)
--- NOTE | 2025-02-20 07:55 | EXP.LABOR.NO ---
Labor Note Subjective: Date: 02/20/25 Time: 07:55 regular contraction Objective: NST:: Reactive Contractions:: every 4-5 minutes Cervical Dilation:: 8 Effacement:: 100% Station: -1 Membranes: ruptured Fetus: Monitoring?: Yes monitoring type:: Internal Assessment: Labor progressing?: Yes Cephalopelvic disproportion?: No Plan: Anesthesia for epidural?: Yes Plan for ?: No Continue to monitor?: Yes Comment:: /. doing well. IUPC placed last night for better monitoring. FSE placed this moring to allow position changes. Pt doing well.
[2025-02-20] MEDS: LABETALOL 100MG TABLET 200 MG PO ×2 (08:59→21:13)
[2025-02-20 09:14] LABS: Alanine Aminotransferase 23 U/L (12-78); Albumin Level 3.4 g/dl (3.5-5.0); Albumin/Globulin Ratio 1.2 (1.1-1.8); Alkaline Phosphatase 103 U/L (38-126); Anion Gap 12.5 mEq/L (5-15); Aspartate Amino Transferase 25 U/L (14-36); Bilirubin,Total 0.7 mg/dl (0.2-1.3); Blood Urea Nitrogen 5 mg/dl (7-17); Calcium 8.5 mg/dl (8.4-10.2); Carbon Dioxide 16 mmol/L (22.0-30.0); Chloride 111 mmol/L (98-107); Creatinine Clearance Estimated 128 mL/min (50-200); Estimated Glomerular Filt Rate 121 ml/min (>60); GFR (African American) 146 ML/MIN (>60); Globulin 2.8 g/dL (1.3-3.2); Glucose 118 mg/dl (74-100); Potassium 3.5 mmoL/L (3.5-5.1); Sodium 136 mmol/L (136-145); Total Protein,Serum 6.2 g/dl (6.3-8.2)
--- NOTE | 2025-02-20 12:07 | EXP.DN ---
Delivery Note Delivery Date:: 02/20/25 Delivery Time:: 11:42 Anesthesia Type: Epidural Was labor medically induced?: Yes Induction method: per misoprostol protocol Gestational age (weeks): 37 Infant delivered prior to 39 weeks?: Yes Justification for early elective delivery:: Pre-eclampsia Gender: Female at 1 minute: 6 at 5 minutes: 8 Delivery Procedure:: Preoperative diagnosis: 1. at 37 completed this weeks gestation, vertex 2. Rh positive 3. GBS negative 4. Preeclampsia 5. Obesity 6. Rubella nonimmune Postoperative diagnosis: 1. at 37 completed this weeks gestation, vertex 2. Rh positive 3. GBS negative 4. Preeclampsia 5. Obesity 6. Rubella nonimmune EBL: 450mL Specimen: 1. Cord blood 2. Placenta Findings: 1. Liveborn viable female infant: Del Valle. Apgars 6/8 at 1 and 5 minutes respectively. Weight pending at time of dictation 2. Transverse/horizontal perineal laceration extending for approximately 12:00 of the left labia Complications: None Procedure: Vacuum-assisted vaginal delivery Dahlia Salinas is a 24-year-old G1, P0 who presented on 02/18/2025 for Cytotec induction secondary to preeclampsia. She received 4 doses of 50 mcg of Cytotec followed by Pitocin, per protocol. She experienced SROM with clear fluid. During her labor course and IUPC and FSE were placed to better address her contractions and monitor her heart rate during position changes. She slowly continued to make progress until she was complete at 0930. She was 37w3d gestation when she delivered. The patient continued to make slow but steady progress, however she had requested to take a break from pushing and was becoming exhausted. The infant was having recurrent variable decelerations. Decelerations were getting to the 60s/90s for a heart rate. They were recovering well between contractions with moderate variability. Given that the patient had had variable decelerations for over an hour and was becoming exhausted decision was made to proceed with a vacuum-assisted vaginal delivery. scalp was visible at the perineum without the labia. Her pelvis was suspected to be adequate for vaginal delivery. The risk and benefits of vacuum-assisted vaginal delivery were reviewed with the patient in detail. Her bladder had been emptied within the last hour. The infant was suspected to be in the OP presentation. The vacuum was applied over the sagittal suture in front of the posterior fontanelle and careful attention was given to avoid entrapment of vaginal tissues. With the next uterine contraction, and maternal expulsive effort the Kiwi vacuum was applied to 20 mmHg uterine pressure and assisted in a vaginal delivery with the next contraction. Delivery occurred with 1 contraction following vacuum assistance. OP presentation was noted. There was a compound hand by the face and the umbilical cord was wrapped around the hand and arm. The vacuum device was removed. The shoulders delivered without dystocia and the lower body followed with delivery at 1142. There were no vacuum pop-off's. The was bulb suctioned following delivery. The infant was placed on the maternal abdomen and the umbilical cord was doubly clamped and cut. Arterial and venous cord gases, and cord blood was collected and sent for routine testing. The placenta delivered with cord traction and suprapubic contertraction at 1148. Pitocin was started. The uterus was firm and bleeding was minimal. The perineum, vaginal kauffman, cervix, and paraurethral area were inspected thoroughly. Transverse/horizontal perineal laceration extending for approximately 12:00 of the left labia. Laceration repaired in normal hemostatic fashion with a 2-0 vicryl. This concluded the delivery. The patient was counseled regarding the events of the delivery and repair. All counts were correct. Mother and were doing well and bonding upon my leaving the delivery room. Laceration:: vaginal Placental Delivery Description: Spontaneous
[2025-02-20] MEDS: OXYTOCIN/RINGERS LACTATE 30 UNITS/500 ML BAG 40 UNITS IV ×2 (12:12)
--- NOTE | 2025-02-20 12:26 | EXP.HP ---
History of Present Illness *Admission Date: 02/18/25 *Reason for visit:: induction *History of present illness: Dahlia Salinas is a 24-year-old G1, P0 who presented on 02/18/2025 for Cytotec induction secondary to preeclampsia. On presentation she is 37 weeks and 1 day gestation. Her was complicated by rubella nonimmune, obesity, chronic hypertension with superimposed preeclampsia. She was taking labetalol. Patient endorsed good movement, denied any leakage of fluid or vaginal bleeding on arrival. She received 4 doses of 50 mcg of Cytotec followed by Pitocin, per protocol. She experienced SROM with clear fluid. During her labor course and IUPC and FSE were placed to better address her contractions and monitor her heart rate during position changes. She slowly continued to make progress until she was complete at 0930. She was 37w3d gestation when she delivered. [facility] Disclaimer: The information contained in this section may have been updated after the patient was seen, as this information can be updated by other users. 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 Anxiety Depression Surgical History Hx of anterior cruciate ligament surgery Social History (Updated 02/20/25 @ 01:41 by Jarvis Teresa CRNA) Smoking Status: Never smoker alcohol intake: never substance use type: denies use current occupational status: unemployed Travel in the last 8 weeks?: None Have you lived/traveled outside [place] in past 30 days?: No Contact w/someone who lives/traveled outside [place] past 30 days?: No Exposure to someone with infectious disease in past 14 days?: No Do you have a fever (greater than 100.4 F or 38 C)?: No Have you tested positive for COVID-19?: No Exposed to someone with COVID-19 in past 14 days?: No Do you have a sore throat?: No Do you have a cough?: No Do you have any weakness?: No Do you have any diarrhea?: No Are you experiencing any unusual bleeding?: No Do you have any muscle aches/pain?: No Do you have any abdominal pain?: No Are you experiencing loss of taste or smell?: No Other Medical History Have you received the Flu Vaccine for this season: No Have you received the Pneumonia Vaccine: No Review of Systems Review of Systems Review of systems (narrative): Review of Systems Constitutional: Denies fever, chills, and sweats Eyes: Denies vision change/ pain Respiratory: Denies cough and shortness of breath Cardiovascular: Denies chest pain and lightheadedness Gastrointestinal: Denies abdominal pain. Denies nausea, vomiting. Genitourinary: Denies dysuria and incontinence Musculoskeletal: Denies shoulder pain and back pain Neurological: Denies change in speech or headaches Meds Home Medications and Allergies Home Medications ?Medication ?Instructions ?Recorded ?Confirmed ?Type vits no.130-ferrous fum 1 tab PO DAILY 08/04/24 02/18/25 History 27 mg iron-folic acid 800 mcg tablet ( Vitamin) hydroxyzine HCl 50 mg tablet 50 mg PO HS #30 tabs 11/18/24 02/18/25 Rx blood-glucose meter #1 ea 12/25/24 02/20/25 Rx labetalol 200 mg tablet 200 mg PO BID #60 tabs 01/21/25 02/18/25 Rx New Prescriptions to Start Prescriptions: Allergies Allergy/AdvReac Type Severity Reaction Status Date / Time No Known Allergies Allergy Verified 02/16/25 13:18 Exam Data for Last 24 hours Vital signs and Labs for Last 24 Hours: Temp Pulse Resp BP Pulse Ox O2 Del Method 98.6 F 100 H 16 132/61 98 Room Air 02/20/25 06:29 02/20/25 06:29 02/20/25 06:29 02/20/25 06:29 02/20/25 02:05 02/20/25 02:05 Laboratory Results - last 24 hr 02/20/25 08:20: Sodium 136, Potassium 3.5, Chloride 111 H, Carbon Dioxide 16 L, Anion Gap 12.5, BUN 5 L, Creatinine 0.60, Estimated Creat Clear 128, Estimated GFR 121, Est GFR ( Amer) 146, Glucose 118 H, Calcium 8.5, Total Bilirubin 0.7, AST 25, ALT 23, Alkaline Phosphatase 103, Total Protein 6.2 L, Albumin 3.4 L, Globulin 2.8, Albumin/Globulin Ratio 1.2 I & O for Last 24 hours: Intake & Output 02/17/25 02/18/25 02/19/25 02/20/25 23:59 23:59 23:59 23:59 Intake Total 1278 / 1278 Output Total 1175 / 1175 Balance 103 / 103 Weight 253 lb Narrative: General: patient is alert oriented in no acute distress and responds appropriately to questions. HEENT: NCAT, EOMI, moist mucous membranes, neck supple with full ROM Cardiovascular: RRR +S1/S2, no murmurs or rubs Pulmonary: Clear to auscultation bilaterally, nonlabored breathing, symmetric chest rise Abdominal: Gravid abdomen appropriate for gestation. No guarding, rebound, or tenderness noted. Extremities: trace edema, no tenderness or cyanosis noted Skin: Normal turgor, intact, warm. Negative for erythema, pallor, petechia, or lesions Neurologic: Negative for sensory or motor deficit Psychiatric: Normal affect, normal thought process, good judgment and insight, no depression or anxious mood appreciated. *Routine HEENT Exam Head: Present normocephalic and atraumatic Eye: Present EOMI, PERRL and normal accommodation; Absent conjunctival icterus, scleral injection, nystagmus or exophthalmos ENT: Present mucous membranes moist *Routine Respiratory Exam Respiratory: Present CTA bilaterally, normal respiratory effort, able to speak in complete sentences and symmetric chest movement; Absent accessory muscle use, decreased breath sounds, rales, respiratory distress, wheezes, distant breath sounds or diminished air movement *Routine Cardiovascular Exam Cardiovascular: Present RRR, Normal S1 and Normal S2; Absent murmur or gallop *Routine Abdominal Exam Abdominal: Present soft and normoactive bowel sounds; Absent tenderness, distended, rebound or guarding *Routine Rectal Exam Rectal:: deferred *Routine Genitalia Exam Genitalia:: normal female Assessment and Plan *Assessment and plan (1) Chronic hypertension with superimposed preeclampsia: Status: Acute Category: Medical Code(s): O11.9 - Pre-existing hypertension with pre-eclampsia, unspecified trimester (2) Rubella non-immune status, antepartum: Status: Acute Category: Medical Code(s): O09.899 - Supervision of other high risk pregnancies, unspecified trimester; Z28.39 - Other underimmunization status (3) : Status: Acute Qualifiers: Weeks of gestation: 33 weeks Qualified Code(s): Z3A.33 - 33 weeks gestation of Category: Medical Code(s): Z34.90 - Encounter for supervision of normal , unspecified, unspecified trimester (4) Obesity: Status: Acute Qualifiers: Obesity type: due to excess calories Obesity classification: adult class 3 (BMI >= 40) Serious obesity comorbidity presence: without serious comorbidity Body mass index: BMI 40.0-44.9 Qualified Code(s): E66.813 - Obesity, class 3; E66.01 - Morbid (severe) obesity due to excess calories; Z68.41 - Body mass index [BMI] 40.0-44.9, adult Category: Medical Code(s): E66.9 - Obesity, unspecified (5) Depression: Status: Acute Category: Medical Code(s): F32.A - Depression, unspecified (6) Anxiety: Status: Acute Category: Medical Code(s): F41.9 - Anxiety disorder, unspecified Plan O+, antibody negative, rubella non immune, hepatitis B negative, hepatitis C negative, RPR negative, HIV negative 1 hour GTT: 150. Patient declined 3-hour and was checking her sugars. They were appropriate GBS negative - Monitor vitals - Admit to L&D for induction of labor - Plan for induction with 50mcg of cytotec [id number] per protocol - Plan for induction with Pitocin, per protocol after Cytotec completion - External FHR and TOCO monitor - GBS neg/ Blood type: O+ - Hemoglobin: 11.2, Plt: 162 - Plan for epidural anesthesia - Anticipate vaginal delivery of female infant: Del Valle #Rubella Non Immune -Counseling and vaccinate
[2025-02-20] MEDS: ACETAMINOPHEN 500MG TAB 1000 MG PO ×2 (13:31→21:13)
[2025-02-20] MEDS: IBUPROFEN 400 MG TABLET 800 MG PO (13:32)
[2025-02-20] MEDS: hydrOXYzine pamoate 25MG CAPSULE 50 MG PO (21:13)
[2025-02-21 00:45] VITALS: BP 129/65; PULSE 92; RESP 16; TEMP 36.8; O2SAT 98
[2025-02-21 04:28] VITALS: BP 134/74; PULSE 101; RESP 19; TEMP 36.8; O2SAT 98
[2025-02-21] MEDS: IBUPROFEN 400 MG TABLET 800 MG PO ×2 (04:45→18:51)
[2025-02-21] MEDS: ACETAMINOPHEN 500MG TAB 1000 MG PO ×2 (06:14→18:51)
[2025-02-21 08:00] VITALS: BP 134/80; PULSE 105; RESP 18; TEMP 36.7; O2SAT 98
[2025-02-21 08:02] LABS: Basophils % 0.2 % (0.1-2.0); Eosinophils # 0.2 Kmm3 (0.0-0.4); Eosinophils % 1.2 % (0.1-12.0); Hematocrit 30.1 % (37.0-47.0); Hemoglobin 10.2 g/dL (12.2-16.2); Immature Granulocytes % 0.6 %; Lymphocytes # 2.7 K/mm3 (0.7-4.5); Lymphocytes % 16.6 % (10-50); Mean Corpuscular HGB Conc 33.9 g/dL (31.8-35.4); Mean Corpuscular Hemoglobin 31.9 pg (27.0-31.2); Mean Corpuscular Volume 94.1 fl (81-99); Mean Platelet Volume 11.7 fl (7.4-10.4); Monocytes # 0.9 K/mm3 (0.1-1.0); Monocytes % 5.5 % (1.7-9.3); Neutrophils # 12.5 K/mm3 (1.8-7.8); Neutrophils % 75.9 % (37.0-80.0); Nucleated Red Blood Cells # 0 10^3/uL; Nucleated Red Blood Cells % 0 %; Platelet Count 156 K/mm3 (142-424); Red Cell Distribution Width 13.3 % (11.5-17.5); Red Cell Distribution Width-SD 45.6 fL; White Blood Count 16.5 K/mm3 (4.8-10.8)
[2025-02-21 08:30] LABS: Albumin Level 3.2 g/dl (3.5-5.0); Chloride 111 mmol/L (98-107); Potassium 3.5 mmoL/L (3.5-5.1); Sodium 138 mmol/L (136-145)
[2025-02-21 08:33] LABS: Alanine Aminotransferase 15 U/L (12-78); Albumin/Globulin Ratio 1.1 (1.1-1.8); Alkaline Phosphatase 97 U/L (38-126); Anion Gap 7.5 mEq/L (5-15); Aspartate Amino Transferase 38 U/L (14-36); Bilirubin,Total 0.2 mg/dl (0.2-1.3); Blood Urea Nitrogen 7 mg/dl (7-17); Calcium 8.8 mg/dl (8.4-10.2); Carbon Dioxide 23 mmol/L (22.0-30.0); Creatinine Clearance Estimated 96 mL/min (50-200); Estimated Glomerular Filt Rate 87 ml/min (>60); GFR (African American) 105 ML/MIN (>60); Globulin 2.8 g/dL (1.3-3.2); Glucose 102 mg/dl (74-100)
[2025-02-21] MEDS: WITCH HAZEL 40 PADS/BOX 1 EACH TP (08:59)
[2025-02-21] MEDS: LABETALOL 100MG TABLET 200 MG PO ×2 (09:00→20:37)
[2025-02-21] MEDS: SENNA 8.6MG TABLET 8.6 MG PO (09:07)
[2025-02-21 12:00] VITALS: BP 135/70; PULSE 102; RESP 18; TEMP 36.8; O2SAT 99
--- NOTE | 2025-02-21 12:33 | EXP.PN ---
Subjective *Date: 02/21/25 *Time: 12:33 Interval history: Dahlia Salians is a G1, P1 day #1 following a VAVD at 37 weeks and 3 days gestation. was chronic hypertension with superimposed preeclampsia. Routine delivery and course. She is doing well, sitting up in bed, and visiting with family this morning. -Reports pain is well-controlled -Reports she is tolerating p.o. without nausea or vomiting. -Reports her lochia is scant. -Undecided on contraception -She is bottle-feeding her female -Ambulating, voiding difficulty or dysuria. Denies chest pain shortness of breath or pain in her legs. No further complaints at this time. Exam Data for Last 24 hours Vital signs and Labs for Last 24 Hours: Temp Pulse Resp BP Pulse Ox O2 Del Method 98.1 F 105 H 18 134/80 98 Room Air 02/21/25 08:00 02/21/25 08:00 02/21/25 08:00 02/21/25 08:00 02/21/25 08:00 02/21/25 08:00 Laboratory Results - last 24 hr 02/21/25 07:48: WBC 16.5 H D, RBC 3.20 L, Hgb 10.2 L, Hct 30.1 L, MCV 94.1, MCH 31.9 H, MCHC 33.9, RDW 13.3, Plt Count 156, MPV 11.7 H, Neut % (Auto) 75.9, Lymph % (Auto) 16.6, Ocean % (Auto) 5.5, Eos % (Auto) 1.2, Baso % (Auto) 0.2, Neut # (Auto) 12.5 H, Lymph # (Auto) 2.7, Ocean # (Auto) 0.9, Eos # (Auto) 0.2, Baso # (Auto) 0.0, Sodium 138, Potassium 3.5, Chloride 111 H, Carbon Dioxide 23, Anion Gap 7.5, BUN 7 D, Creatinine 0.80 D, Estimated Creat Clear 96, Estimated GFR 87, Est GFR ( Amer) 105 D, Glucose 102 H, Calcium 8.8, Total Bilirubin 0.2, AST 38 H D, ALT 15 D, Alkaline Phosphatase 97, Total Protein 6.0 L, Albumin 3.2 L, Globulin 2.8, Albumin/Globulin Ratio 1.1 I & O for Last 24 hours: Intake & Output 02/18/25 02/19/25 02/20/25 02/21/25 23:59 23:59 23:59 23:59 Intake Total 1278 / 1278 Output Total 1175 / 1175 Balance 103 / 103 Weight 253 lb Narrative: General: patient is alert oriented in no acute distress and responds appropriately to questions. Appears to be in minimal pain. Sitting up in the chair and doing well HEENT: NCAT, EOMI, moist mucous membranes, neck supple with full ROM Cardiovascular: RRR +S1/S2, no murmurs or rubs Pulmonary: Clear to auscultation bilaterally, nonlabored breathing, symmetric chest rise Abdominal: Fundus at the umbilicus, firm, and tenderness appropriate for the period. Extremities: trace edema, no tenderness or cyanosis noted Skin: Normal turgor, intact, warm. Negative for erythema, pallor, petechia, or lesions Neurologic: Negative for sensory or motor deficit Psychiatric: Normal affect, normal thought process, good judgment and insight, no depression or anxious mood appreciated. Assessment and Plan *Assessment and plan (1) Chronic hypertension with superimposed preeclampsia: Status: Acute Category: Medical Code(s): O11.9 - Pre-existing hypertension with pre-eclampsia, unspecified trimester (2) Preeclampsia: Status: Acute Category: Medical Code(s): O14.90 - Unspecified pre-eclampsia, unspecified trimester (3) Depression: Status: Acute Category: Medical Code(s): F32.A - Depression, unspecified (4) Anxiety: Status: Acute Category: Medical Code(s): F41.9 - Anxiety disorder, unspecified (5) Vacuum extraction, delivered, current hospitalization: Status: Acute Category: Medical Code(s): O75.9 - Complication of labor and delivery, unspecified Plan Stable. PPD#1 s/p -Doing well. VSS. Serial lochia and fundal checks. -Continue with perineal ice packs for discomfort -Hemoglobin: 11.2--> 10.2 -O+/antibody negative -Bottlefeeding, female -Contraception: undecided -Follow-up 1 weeks for routine visit -Dispo: home saturday pending mother/infant status #Chronic hypertension with superimposed preeclampsia - Blood pressure has been well-controlled - Continue home meds - Continue daily PIH labs - Remain inpatient for blood pressure monitoring for 72 hours to assess for the need for magnesium
[2025-02-21 17:30] VITALS: BP 137/79; PULSE 105; RESP 17; TEMP 36.8; O2SAT 98
[2025-02-21 20:32] VITALS: BP 135/76; PULSE 93; RESP 17; TEMP 36.6; O2SAT 98
[2025-02-21] MEDS: hydrOXYzine pamoate 25MG CAPSULE 50 MG PO (20:38)
[2025-02-22 00:19] VITALS: BP 130/76; PULSE 78; RESP 16; TEMP 36.4; O2SAT 98
[2025-02-22] MEDS: SENNA 8.6MG TABLET 8.6 MG PO (03:20)
[2025-02-22] MEDS: IBUPROFEN 400 MG TABLET 800 MG PO ×2 (03:20→13:54)
[2025-02-22] MEDS: ACETAMINOPHEN 500MG TAB 1000 MG PO ×2 (03:20→13:54)
[2025-02-22 04:02] VITALS: BP 128/86; PULSE 84; RESP 18; TEMP 36.5; O2SAT 99
[2025-02-22] MEDS: WITCH HAZEL 40 PADS/BOX 1 EACH TP (05:55)
[2025-02-22 08:50] VITALS: BP 138/77; PULSE 95; RESP 18; TEMP 36.5; O2SAT 99
[2025-02-22] MEDS: LABETALOL 100MG TABLET 200 MG PO ×2 (08:59→21:04)
--- NOTE | 2025-02-22 11:16 | EXP.ACUTE.PN ---
Subjective *Date: 02/22/25 *Time: 12:56 Interval history: PPD # 3 s/p VAVD Feeling well. Pain controlled. Formula feeding. Lochia is a light. Voiding without difficulty and passing flatus. Tolerating regular diet. Denies fever/chills, chest pain and shortness of breath. No headaches, vision changes, lightheadedness/dizziness. No lower extremity swelling. Ambulating well ad derek. Medical Exam Vital signs and Labs for Last 24 Hours: Vital Signs Temp Pulse Resp BP Pulse Ox O2 Del Method 02/22/25 04:02 97.7 F 84 18 128/86 99 Room Air 02/22/25 00:19 97.5 F L 78 16 130/76 98 Room Air 02/21/25 20:32 97.9 F 93 H 17 135/76 98 Room Air 02/21/25 17:30 98.3 F 105 H 17 137/79 98 Room Air 02/21/25 12:00 98.2 F 102 H 18 135/70 99 Room Air Laboratory Results - last 24 hr 02/18/25 13:14: Crossmatch (AHG) See Detail I & O for Labs for Last 24 Hours: Intake & Output 02/19/25 02/20/25 02/21/25 02/22/25 23:59 23:59 23:59 23:59 Intake Total 1278 / 1278 Output Total 1175 / 1175 Balance 103 / 103 Head: Present atraumatic and normocephalic ENT: Present normal exam and mucous membranes moist Neck: Present normal inspection and full ROM Respiratory: Present CTA bilaterally and normal respiratory effort Cardiac: Present Reg Rate and Rhythm GI: Present soft; Absent distention or tenderness Rectal (female): Present deferred (female): Present deferred Extremities: Present full ROM; Absent edema or calf tenderness Neuro: Present alert, awake and moves all extremities Assessment and Plan *Assessment and plan (1) Vacuum extraction, delivered, current hospitalization: Status: Acute Category: Medical Code(s): O75.9 - Complication of labor and delivery, unspecified (2) Chronic hypertension with superimposed preeclampsia: Status: Acute Category: Medical Code(s): O11.9 - Pre-existing hypertension with pre-eclampsia, unspecified trimester (3) Rubella non-immune status, antepartum: Status: Acute Category: Medical Code(s): O09.899 - Supervision of other high risk pregnancies, unspecified trimester; Z28.39 - Other underimmunization status (4) Depression: Status: Acute Category: Medical Code(s): F32.A - Depression, unspecified (5) Anxiety: Status: Acute Category: Medical Code(s): F41.9 - Anxiety disorder, unspecified Plan Continue routine care BP normotensive on Labetalol 200 mg PO BID Plan d/c home tomorrow
[2025-02-22 15:56] VITALS: BP 132/81; PULSE 95; RESP 17; TEMP 36.8; O2SAT 98
[2025-02-22] MEDS: PRENATAL MULTIVITAMIN W/IRON 1 EACH PO (16:16)
[2025-02-22 20:20] VITALS: BP 136/88; PULSE 90; RESP 18; TEMP 37.1; O2SAT 98
[2025-02-22] MEDS: hydrOXYzine pamoate 25MG CAPSULE 50 MG PO (21:04)
[2025-02-23 04:06] VITALS: BP 144/82; PULSE 82; RESP 17; TEMP 36.8; O2SAT 99
[2025-02-23] MEDS: ACETAMINOPHEN 500MG TAB 1000 MG PO ×2 (04:49→08:01)
[2025-02-23 07:35] VITALS: BP 127/72; PULSE 96; RESP 18; TEMP 37; O2SAT 100
[2025-02-23] MEDS: LABETALOL 100MG TABLET 200 MG PO (08:01)
--- NOTE | 2025-02-23 11:35 | EXP.DC.SUM ---
General Admission date:: 02/18/25 Discharge date: 02/23/25 HPI HPI HPI: Dahlia Salinas is a 24-year-old G1, P0 who presented on 02/18/2025 for Cytotec induction secondary to preeclampsia. On presentation she is 37 weeks and 1 day gestation. Her was complicated by rubella nonimmune, obesity, chronic hypertension with superimposed preeclampsia. She was taking labetalol. Patient endorsed good movement, denied any leakage of fluid or vaginal bleeding on arrival. She received 4 doses of 50 mcg of Cytotec followed by Pitocin, per protocol. She experienced SROM with clear fluid. During her labor course and IUPC and FSE were placed to better address her contractions and monitor her heart rate during position changes. She slowly continued to make progress until she was complete at 0930. She was 37w3d gestation when she delivered. Hospital Course Hospital Course Hospital Course: Dahlia Salinas is a 24-year-old G1, P1 day #3 from a vacuum-assisted vaginal delivery. Delivery was at 37+ weeks gestation secondary to chronic hypertension with superimposed preeclampsia. Her blood pressures have been well-controlled while inpatient without any severe range blood pressures. She has not met criteria for severe preeclampsia. She has done very well. She will be discharged home on her home antihypertensive, labetalol 200 mg twice daily. She will have a short interval follow-up. On 02/20/2025 at 1142 she delivered a live viable female : Eligio. Infant weighed 7 pounds 1 ounce at delivery. Apgars were 6 and 8 at 1 and 5 minutes. She has done well and has remained afebrile with her at her hospitalization. She is eating and drinking and ambulating. She is bottlefeeding. Her lochia is normal. She has O Rh+ blood, she is rubella nonimmune and was group B streptococcus negative. She will be discharged home to follow-up with Dr. Carreon in 1 weeks time. She will continue with her vitamins. She will take ibuprofen as well. She was given the usual instructions with respect to limiting her activity, driving and sexual activity. She was given instructions with respect to wound care. Her condition on discharge is stable and improved. Exam Data for Last 24 hours Vital signs and Labs for Last 24 Hours: Temp Pulse Resp BP Pulse Ox O2 Del Method 98.6 F 96 H 18 127/72 100 Room Air 02/23/25 07:35 02/23/25 07:35 02/23/25 07:35 02/23/25 07:35 02/23/25 07:35 02/23/25 07:35 I & O for Last 24 hours: Intake & Output 02/20/25 02/21/25 02/22/25 02/23/25 23:59 23:59 23:59 23:59 Intake Total 1278 / 1278 Output Total 1175 / 1175 Balance 103 / 103 DS: Diagnosis Discharge Diagnosis (1) Vacuum extraction, delivered, current hospitalization: Status: Acute Code(s): O75.9 - Complication of labor and delivery, unspecified (2) Chronic hypertension with superimposed preeclampsia: Status: Acute Code(s): O11.9 - Pre-existing hypertension with pre-eclampsia, unspecified trimester (3) Rubella non-immune status, antepartum: Status: Acute Code(s): O09.899 - Supervision of other high risk pregnancies, unspecified trimester; Z28.39 - Other underimmunization status (4) Depression: Status: Acute Code(s): F32.A - Depression, unspecified (5) Anxiety: Status: Acute Code(s): F41.9 - Anxiety disorder, unspecified Meds Home Medications and Allergies Home Medications ?Medication ?Instructions ?Recorded ?Confirmed ?Type vits no.130-ferrous fum 1 tab PO DAILY 08/04/24 02/18/25 History 27 mg iron-folic acid 800 mcg tablet ( Vitamin) hydroxyzine HCl 50 mg tablet 50 mg PO HS #30 tabs 11/18/24 02/18/25 Rx blood-glucose meter #1 ea 12/25/24 02/20/25 Rx labetalol 200 mg tablet 200 mg PO BID #60 tabs 01/21/25 02/18/25 Rx acetaminophen 500 mg tablet 500 mg PO Q6H PRN fever or pain 02/23/25 Rx #30 tabs ibuprofen 800 mg tablet 800 mg PO Q8H PRN pain #60 tabs 02/23/25 Rx New Prescriptions to Start Prescriptions: acetaminophen Lauri,Celeste ibuprofen Lauri,Celeste Allergies Allergy/AdvReac Type Severity Reaction Status Date / Time No Known Allergies Allergy Verified 02/16/25 13:18 Discharge Plan Disposition Patient Disposition: Home, Self-Care Condition: Good Discharge Order Discharge Orders: Discharge Order (Routine); Ordered 02/23/25 Ordered By: Celeste Carreon Follow up Plan Follow up with: Celeste Carreon DO [Staff Physician] - 03/02/25 1:15 pm Prescriptions/Medication Reconciliation: New acetaminophen 500 mg tablet 500 mg PO Q6H PRN (Reason: fever or pain) Qty: 30 3RF ibuprofen 800 mg tablet 800 mg PO Q8H PRN (Reason: pain) Qty: 60 2RF Continued Vitamin 27 mg iron- 800 mcg tablet 1 tab PO DAILY Patient Comments: TAKE 1 TABLET BY MOUTH ONCE DAILY. hydroxyzine HCl 50 mg tablet 50 mg PO HS Qty: 30 3RF (DME) blood-glucose meter Kit See Rx Instructions .Route Qty: 1 0RF Rx Instructions: Test Blood sugar QID, Fasting and 2 hours after each meal. labetalol 200 mg Tablet 200 mg PO BID Qty: 60 0RF Problem Reconciliation Problems Reviewed?: Yes Patient Discharge Instructions ACTIVITY: Continue current activity DIET: regular diet Additional Instructions: Congratulations on the delivery of your sweet baby girl. It is my privilege to be your doctor and I am so thankful I could be a part of your special day. Discharge: -Take 800 mg Ibuprofen every 8 hours as needed for pain. You can also take 500-1000 mg of Tylenol in between doses, every 6-8 hours. -Colace can be taken 1-2 times per day as you need to soften your stool. Make sure to drink at least 8 cups of water per day. -Iron supplements can make you constipated. You can take iron tablets every other day if constipation is too bad. -Nothing in the vagina for 6 weeks - no intercourse, douching, tampons. No tub baths or swimming pools. -Do not lift greater than 20pounds for 2 weeks, this is the equivalent of 2 gallons of milk. -Reasons to return to L&D or call On-Call doctor - fever (greater than 100.4) - heavy vaginal bleeding (soaking through 1 pad in less than 2 hours or passing clots that are egg sized) - vaginal discharge (malodorous and/or purulent) - severe headaches, leg tenderness/edema, or any other symptoms that warrant immediate medical attention. depression/blues - Normal to feel anxious/overwhelmed for first 2 weeks - Talk to your doctor if: anxiety lasts over 2 weeks, trouble bonding with baby, withdrawing from other family members, thoughts of harming yourself or others Blood pressure and preeclampsia instructions 1. Please take your blood pressure twice daily. 2. Please call if greater than 2 values are higher than: 150 systolic (the top number) or 100 diastolic (the bottom number). 3. Please go to the emergency room or labor and delivery triage if any value is higher than: 160 systolic (the top number) or 110 diastolic (the bottom number). 4. Please call if unrelenting headache (does not go away with rest or Tylenol or ibuprofen), changes in vision (spots, floaters, flashes of light), chest pain, shortness of breath, or right upper quadrant (liver) abdominal pain. Celeste Carreon DO [facility] [phone] *Nothing in the Vagina for 6 weeks* *No strenuous activity* *No heavy lifting* *No tub baths until okay's by MD* Patient Instructions: Depression, Hemorrhage, DI for Labor and Delivery, Vaginal , DI for Pre-eclampsia, [facility] Post Discharge Instructions Print Language: Turkmen Providers Primary Care Provider: Deandre Dimas Admit Provider: Celeste Carreon Attending Provider: Celeste Carreon
[2025-02-23] MEDS: WITCH HAZEL 40 PADS/BOX 1 EACH TP (11:53)
== END 2025-02-23 12:45 | disposition home or self-care (01) | DRG 807 ==
PROVIDERS: Admitting Provider Obstetrics & Gynecology; PCP Family Medicine; Visit Provider Obstetrics & Gynecology
DX: O11.4 Pre-existing hypertension with pre-eclampsia, complicating childbirth (principal); Z37.0 Single live birth; Z3A.37 37 weeks gestation of pregnancy; O32.6XX0 Maternal care for compound presentation, not applicable or unspecified; O75.81 Maternal exhaustion complicating labor and delivery; O69.82X0 Labor and delivery complicated by other cord entanglement, without compression, not applicable or unspecified; O70.0 First degree perineal laceration during delivery; I10 Essential (primary) hypertension; E66.813 Obesity, class 3; O99.214 Obesity complicating childbirth
CPT/HCPCS: 36415; 59025; 80053; 81001; 82803; 84112; 85025; 86592; 86850; 94761; C1758; G0283; J0595; J3010; J7120

== ENCOUNTER 2025-09-22 15:00 | Outpatient (CLI) | payer BC, SELFPAY ==
[2025-09-22 20:46] LABS: Hematocrit 42.1 % (37.0-47.0); Hemoglobin 14.6 g/dL (12.2-16.2); Immature Granulocytes % 0.3 %; Mean Corpuscular HGB Conc 34.7 g/dL (31.8-35.4); Mean Corpuscular Hemoglobin 31.3 pg (27.0-31.2); Mean Corpuscular Volume 90.3 fl (81-99); Nucleated Red Blood Cells % 0 %; Platelet Count 233 K/mm3 (142-424); Red Blood Count 4.66 M/mm3 (4.20-5.40); Red Cell Distribution Width-SD 39.8 fL; White Blood Count 7.6 K/mm3 (4.8-10.8)
[2025-09-22 21:58] LABS: Albumin Level 4.3 g/dl (3.5-5.0); Chloride 107 mmol/L (98-107); Potassium 4.3 mmoL/L (3.5-5.1); Sodium 141 mmol/L (136-145)
[2025-09-22 22:01] LABS: Alanine Aminotransferase 24 U/L (12-78); Albumin/Globulin Ratio 1.6 (1.1-1.8); Alkaline Phosphatase 80 U/L (38-126); Anion Gap 15.3 mEq/L (5-15); Aspartate Amino Transferase 26 U/L (14-36); Bilirubin,Total 0.4 mg/dl (0.2-1.3); Blood Urea Nitrogen 10 mg/dl (7-17); Calcium 8.9 mg/dl (8.4-10.2); Carbon Dioxide 23 mmol/L (22.0-30.0); Creatinine,Serum 0.90 mg/dl (0.52-1.04); Estimated Glomerular Filt Rate 76 ml/min (>60); GFR (African American) 92 ML/MIN (>60); Globulin 2.7 g/dL (1.3-3.2); Glucose 100 mg/dl (74-100); Iron 129 ug/dL (37-170); Magnesium 2.0 mg/dl (1.6-2.3); Total Protein,Serum 7.0 g/dl (6.3-8.2)
[2025-09-22 22:11] LABS: Total Iron Binding Capacity 360 ug/dL (265-497)
[2025-09-22 22:32] LABS: Thyroid Stimulating Hormone 1.89 uIU/mL (0.465-4.68)
== END 2025-09-22 23:59 ==
LOC: LAB.DROPOF 09-24 10:20
PROVIDERS: PCP Family Medicine; Visit Provider Nurse Practitioner
DX: O90.81 Anemia of the puerperium (principal); O99.345 Other mental disorders complicating the puerperium; F53.0 Postpartum depression; I10 Essential (primary) hypertension; R45.4 Irritability and anger
CPT/HCPCS: 80053; 83540; 83550; 83735; 84443; 85025